=== PATIENT | female | born 1985 | race Caucasian/White ===

== ENCOUNTER 2017-10-13 14:13 | Emergency (ER) | payer MEDICAID, SELFPAY ==
[2017-10-13 14:14] VITALS: BP 133/83; PULSE 94; RESP 16; TEMP 36.3; O2SAT 96; BMI 38.3
[2017-10-13] MEDS: Ketorolac 30 MG/ML Syringe IV (14:43)
[2017-10-13] MEDS: 0.9% Normal Saline 1,000 ML 1000 ML IV (14:43)
[2017-10-13] MEDS: Dicyclomine 20 MG/2 ML Vial IM (14:43)
[2017-10-13] MEDS: Ondansetron 4 MG/2 ML Vial IV (14:43)
[2017-10-13 15:07] LABS: Absolute Lymphocyte Count 2.11 X10^3/ul (0.83-4.51); Absolute Neutrophil Count 7.6 X10^3/uL (2.0-7.7); Basophil# 0.02 X10^3/uL; Basophil% 0.2 % (0-1); Eosinophil# 0.36 X10^3/uL; Eosinophils% 3.4 % (0-5); Hematocrit 45.8 % (37-47); Hemoglobin 15.4 g/dl (12.0-15.0); Lymphocyte # 2.11 X10^3/ul (4.0); Lymphocyte % 19.9 % (19-41); Mean Corp Hgb Conc 33.6 g/gl (32-36); Mean Corpuscular Hgb 31.6 pg (27.0-32.0); Mean Platelet Vol. 8.6 fl (6.2-12.0); Monocyte# 0.52 X10^3/uL; Monocyte% 4.9 % (0-10); Neutrophil # 7.56 X10^3/uL (2.7-7.7); Neutrophil % 71.3 % (47-70); Platelet Count 316 K/mm3 (150-450); RBC Distribution Width SD 44.6 fl (35.1-43.9); Red Blood Count 4.87 M/mm3 (4.2-5.4); White Blood Count 10.6 K/mm3 (4.4-11.0)
[2017-10-13 15:10] LABS: POSITIVE COUNT NO; POSITIVE DIFFERENTIAL NO; POSITIVE MORPHOLOGY NO
--- NOTE | 2017-10-13 15:29 | ED.DCSUM_ITS ---
- ER Visit Summary Date of Service: 10/13/17 Chief Complaint: Abdominal pain History of Present Illness: The patient is a [address] Davidson. She reports that she has abdominal pain that began 2 days ago. Is gradually gotten worse. Is a sharp, stabbing pain that is 10 out of 10 at worst and 7 out of 10 currently. States is worsened by nothing and relieved by pressure. She reports she has been nauseated and vomited approximately 10 times. No blood or emesis. She has had 2 episodes of diarrhea, but has not had any today. No blood in her stools or black tarry stools. No dysuria or frequency. Last menstrual period was October 04. Patient does state that she began feeling ill after eating a pork loin that she cooked at home. Others in the family did not feel well after, but they have all returned to baseline. Patient denies sick contacts. Has not been camping out of the country. Does not drink well water. No recent antibiotic use. Physical Examination: Vitals: Stable. Afebrile. General: Well-nourished and well-developed. Head: Normocephalic atraumatic. Neck: Supple, no lymphadenopathy. No JVD. Nontender. Cardiovascular: Regular rate and rhythm. No murmurs. Respiratory: No respiratory distress. Clear to auscultation bilaterally. Abdominal: Soft, mild diffuse tenderness palpation with moderate epigastric tenderness, nondistended, normal bowel sounds. No guarding, rebound, or peritoneal signs. Back: Nontender. Extremities: Nontender, no edema. Skin: Normal color, no rash. Neurologic: Alert and oriented ?3. Cranial nerves II through XII are intact. Normal strength and sensation. Psych: Normal affect. Test Results: CBC is marked for hemoglobin of 15.4 and 7 neutrophils of 71. BMP is normal. LFTs are normal. Lipase is normal. Emergency Department Course and Treatment: Patient had an IV placed. She was given a liter of normal saline. She is given Toradol and Zofran IV. She is given Bentyl IM. She is resting comfortably. Treatment Plan: Patient will be discharged with Zofran and Bentyl. Instructed to follow-up with Dr. Davidson in 1-2 days if not improving. Return to the emergency department for any worsening symptoms. Disposition: To home in improved and stable condition. Impression: 1. Vomiting/diarrhea. This note was generated with [employer] dictation software. It may contain incorrect words, spelling, and punctuation that were not noted in review of the chart prior to signing ED Disposition - Plan for ED Patient: Chief Complaint: Abd Pain Instructions: ED Gastroenteritis Vs Food Poison Prescriptions: Ondansetron [Zofran Odt] 4 mg PO Q8H PRN PRN #10 tablet PRN Reason: Nausea Dicyclomine HCl [Bentyl] 20 mg PO TIDAC #20 capsule Referrals: Dion Davidson DO [Primary Care Provider] - 1-2 Days if not improving
[2017-10-13 15:48] LABS: AST(SGOT) 15 U/L (15-37); Alanine Aminotransfer ALT/SGPT 25 U/L (13-56); Albumin, Serum 3.8 g/dL (3.2-5.0); Alkaline Phosphatase 94 U/L (45-117); Anion Gap 4 (5-15); BUN 8 mg/dL (7-18); BUN/Creat Ratio 9.4 RATIO (10-20); Bilirubin, Direct 0.12 mg/dL (0.00-0.30); Calcium,Total 8.9 mg/dL (8.5-10.1); Chloride 107 mmol/L (98-107); Creatinine, Serum 0.85 mg/dL (0.55-1.02); EST Glomerular Filtration Rate 83 mL/min (>60); Est Glom Filt Rate - Afr Amer 101 mL/min (>60); Estimated Creatinine Clearance 76.54 ml/min; Globulin 4.2 g/dL (2.2-4.2); Glucose 80 mg/dL (74-106); Lipase 169 U/L (73-393); Potassium 3.9 mmol/L (3.5-5.1); Sodium Level 139 mmol/L (136-145)
[2017-10-13] MEDS: Morphine 4 MG/ML Syringe IV (16:08)
[2017-10-13] MEDS: proMETHazine 25 MG/ML Syringe 6.25 MG IV (16:09)
[2017-10-13 16:10] VITALS: BP 126/85; PULSE 67; RESP 18; O2SAT 100
[2017-10-13 16:22] VITALS: BP 126/85; PULSE 67; RESP 18; O2SAT 100
== END 2017-10-13 16:22 | disposition home or self-care (01) ==
PROVIDERS: Emergency Provider Emergency Medicine; Family Provider Student in an Organized Health Care Education/Training Program; PCP Student in an Organized Health Care Education/Training Program
DX: R11.2 Nausea with vomiting, unspecified (principal); R19.7 Diarrhea, unspecified; R10.9 Unspecified abdominal pain; R53.1 Weakness; F17.210 Nicotine dependence, cigarettes, uncomplicated
CPT/HCPCS: 80048; 80076; 83690; 85025; 99284; J7030; A4216; J2405

== ENCOUNTER 2019-01-20 14:11 | Emergency (ER) | payer MEDICAID, SELFPAY ==
[2019-01-20 14:12] VITALS: BP 149/73; PULSE 89; RESP 16; TEMP 36.6; O2SAT 98; BMI 27.8
--- NOTE | 2019-01-20 14:35 | US_ITS ---
STUDY: FIRST TRIMESTER OBSTETRICAL ULTRASOUND REASON FOR EXAM: Female, 33 years old. Abdominal cramping with excessive nausea and vomiting. LMP: December 05, 2018. TECHNIQUE: Transvaginal TECHNICAL QUALITY: Adequate. PRIOR ULTRASOUND: None. FINDINGS: There is visualization of a single gestational sac in a normal intrauterine position. The mean sac diameter (MSD) measures 2.2 cm, indicating an estimated gestational age (EGA) of 6 weeks, 4 days. The gestational sac shape is within normal limits. There is a visualized yolk sac. The yolk sac measures 3.9 mm. The placenta is non-visualized. There is visualization of a live embryo. The crown-rump length (CRL) measures 6.3 mm, indicating an estimated gestational age (EGA) of 6 weeks, 4 days. No cardiac activity is noted at this time. The estimated gestation age (EGA) by LMP is 6 weeks, 4 days. The estimated date of delivery (NAYLA) by LMP is September 11, 2019. The estimated gestation age (EGA) by US is 6 weeks, 4 days. The estimated date of delivery (NAYLA) by US is September 11, 2019. The uterus measures 7.9 cm x 5.4 cm x 4.2 cm. There is no demonstrated uterine fibroid. The cervix is closed. The right ovary measures 3.2 cm x 1.9 cm x 2.0 cm. There is no right ovarian cyst. There is no visualized right adnexal mass or complex lesion. The left ovary measures 4 cm x 3 cm x 2.5 cm. There is a 1.6 cm x 1.3 cm x 1.1 cm corpus luteum cyst. There is no visualized left adnexal mass or complex lesion. There is no fluid in the cul de sac. US/Transvaginal w/Preg US IMPRESSION: Intrauterine gestation with a mean gestational age of 6 weeks and 4 days. No embryonic cardiac activity is noted at this time. A follow-up examination is recommended. Electronically Signed: Long Landeros, at 15:58 EDT , Service support ,
[2019-01-20] MEDS: proMETHazine 25 MG/ML Syringe 12.5 MG IV (14:49)
[2019-01-20] MEDS: 0.9% Normal Saline 1,000 ML 1000 ML IV (14:49)
[2019-01-20 14:54] LABS: Absolute Lymphocyte Count 2.26 X10^3/uL (0.83-4.51); Absolute Neutrophil Count 6.5 X10^3/uL (2.0-7.7); Basophil# 0.08 X10^3/uL; Basophil% 0.8 % (0-1); Hemoglobin 15.1 g/dL (12.0-15.0); Lymphocyte # 2.26 X10^3/ul (4.0); Lymphocyte % 22.9 % (19-41); Mean Corp Hgb Conc 35.1 g/dL (32-36); Mean Corpuscular Hgb 32.3 pg (27.0-32.0); Mean Corpuscular Volume 92.1 fL (81-99); Mean Platelet Vol. 8.4 fl (6.2-12.0); Monocyte# 0.65 X10^3/uL; Monocyte% 6.6 % (0-10); NRBC Flagged by Analyzer 0 % (0-5); Neutrophil # 6.52 X10^3/uL (2.7-7.7); Platelet Count 337 K/mm3 (150-450); RBC Distribution Width SD 40.4 fl (35.1-43.9); Red Blood Count 4.67 M/mm3 (4.2-5.4); White Blood Count 9.9 K/mm3 (4.4-11.0)
[2019-01-20 15:01] LABS: AST(SGOT) 12 U/L (15-37); Alanine Aminotransfer ALT/SGPT 20 U/L (13-56); Albumin, Serum 3.8 g/dL (3.2-5.0); Alkaline Phosphatase 85 U/L (45-117); Anion Gap 10 (5-15); BUN 9 mg/dL (7-18); BUN/Creat Ratio 14.3 RATIO (10-20); Calcium,Total 9.5 mg/dL (8.5-10.1); Chloride 107 mmol/L (98-107); Creatinine, Serum 0.63 mg/dL (0.55-1.02); EST Glomerular Filtration Rate 116 mL/min (>60); Est Glom Filt Rate - Afr Amer 141 mL/min (>60); Estimated Creatinine Clearance 101.39 ml/min; Globulin 3.9 g/dL (2.2-4.2); Glucose 104 mg/dL (74-106); Potassium 3.9 mmol/L (3.5-5.1); Protein, Total 7.7 g/dL (6.4-8.2); Sodium Level 141 mmol/L (136-145)
[2019-01-20 15:44] LABS: hCG Titer Quant., Serum 40168 mIU/mL (1-3)
[2019-01-20 15:55] VITALS: BP 120/76; PULSE 79; RESP 16; O2SAT 99
[2019-01-20 16:02] LABS: Mucous, Urine 0 SEEN /hpf (<or=2+); Red Blood Cells-Urine 0 SEEN /hpf (0-5); White Blood Cells 0 SEEN /hpf (0-5)
[2019-01-20 16:29] LABS: Color, Urine Yellow (Yellow); Glucose, Dipstick Normal (Normal); Ketone-Dipstick Negative (Negative); Leukocyte Esterase-Dipstick Negative /ul (Negative); Nitrite-Dipstick Negative (Negative); Occult Blood-Urine Negative /ul (Negative); Protein-Dipstick Negative (Negative); Urine Bilirubin Dipstick Negative (Negative); Urine Clarity Sl. Cloudy (Clear); Urine Urobilinogen Normal (Normal)
[2019-01-20 16:30] LABS: Amorphous Sediment 2+; Bacteria 1+ /hpf (None Seen); Squamous Epithelial Cells - UA 0-5 SEEN /hpf (5-10)
--- NOTE | 2019-01-20 19:03 | ED.VISSUMM ---
- ER Visit Summary Date of Service: 01/20/19 Chief Complaint: Nausea and vomiting History of Present Illness: The patient is a 33 F with nausea and vomiting for 2 weeks, worse for 4 days. Patient is Ab2 at 6 weeks and follows with [facility]. She has not been seen so far for this . She also reports a headache today and lower abdominal cramps. Denies any other associated symptoms. Physical Examination: BP 149/73. Otherwise vitals normal. CN grossly intact. No weakness or numbness noted. HEENT exam normal. Heart regular. Lungs clear. Abdomen soft. Skin normal. Test Results: Hb 15.1. AST 12. Otherwise CBC and CMP normal. UA shows 1+ bacteria, otherwise normal. Culture pending. HCG 40k. US shows IUP at 6 weeks with ovarian cyst. No FHR at this time. Emergency Department Course and Treatment: Treated with IV fluids and phenergan while awaiting results. On reevaluation, symptoms have improved. BP 120/68. Patient discussed with Alisson Vincent and advised to call for follow up in 1-2 days. Advised that the biggest concern without a FHR at this point would be miscarriage. Will check for FHR, BP monitoring and urine CX. Return for any issues. Treatment Plan: As above Disposition: Discharge Impression: 1. Threatened 2. Nausea and vomiting This note was generated with [employer] dictation software. It may contain incorrect words, spelling, and punctuation that were not noted in review of the chart prior to signing ED Disposition - Plan for ED Patient: Disposition: Home or Assisted Living Referrals: Dion Davidson DO [Primary Care Provider] -
== END 2019-01-20 17:07 | disposition home or self-care (01) ==
PROVIDERS: Emergency Provider Emergency Medicine; Family Provider Student in an Organized Health Care Education/Training Program; PCP Student in an Organized Health Care Education/Training Program
DX: O20.0 Threatened abortion (principal); R11.2 Nausea with vomiting, unspecified; Z3A.01 Less than 8 weeks gestation of pregnancy; Z72.0 Tobacco use
CPT/HCPCS: 76817; 80053; 81001; 84702; 85025; 86900; 87086; 87088; 96361; 96374; 99283; J7030; A4216

== ENCOUNTER 2019-02-22 14:21 | Emergency (ER) | payer MEDICAID, SELFPAY ==
[2019-02-22 14:22] VITALS: BP 132/70; PULSE 86; RESP 16; TEMP 36.6; O2SAT 99; BMI 34.2
--- NOTE | 2019-02-22 14:34 | ED.DCSUM_ITS ---
History of Present Illness Chief Complaint: Nausea/Vomiting Informant: Patient, Significant Other - Abdominal Pain/Flank Pain Onset: Today Context: Gradual Onset Timing: Continuous Quality: Burning Location: Epigastric Current Severity: Mild Maximum Severity: Mild Worsened by: Food Relieved by: Remaining Still - Nausea/Vomiting/Emesis GI Symptom: Nausea, Vomiting Onset: Yesterday Quality: Nonbilious Severity: Severe Episodes: 5 Associated Symptoms: Frequency. Negative for: Dysuria, Hematuria LMP: Narrative: 33-year-old female approximately 11 weeks G4, P1 Ab2 presents to the emergency department with nausea and vomiting. Patient has been having nausea vomiting since yesterday. She is having difficulty keeping down food and fluids. She has been dealing with this now for the last several weeks and was here a few weeks ago for similar symptoms. She states that she has not been taking any antiemetics at home. She has not had any hematemesis or coffee- ground emesis. She has no diarrhea melena or hematochezia. She is not having any vaginal bleeding or discharge. She has some mild epigastric abdominal pain. She denies any dysuria or hematuria. Her family has been sick at home with similar symptoms. Prior similar symptoms: Yes Recent Illness/Hospitalization: No Past Medical History - Allergies and Home Meds Allergies/Adverse Reactions: Allergies varenicline [From Chantix] Allergy (Verified 02/22/19 14:22) Other Primary Care Physician: Dion Davidson DO [Primary Care Provider] - Evangelina Medina MD [STAFF PHYSICIAN] - 3-5 Days Prior records reviewed: Yes Past Medical History: - - [id number] Surgical History: noncontributory Lives: With Family Smoking Status: Current every day smoker Review of Systems All systems negative except as indicated Gastrointestinal: Reports: Nausea, Vomiting Genitourinary: Reports: Frequency Physical Exam Vital Signs/Narrative: Vital Signs Temp Pulse Resp BP Pulse Ox 02/22/19 14:22 97.8 F 86 16 132/70 H 99 Inital Vital Signs reviewed: Yes General: Well nourished, Well developed Head: Normocephalic, Atraumatic Eyes: Perrl, EOMI ENT: Moist mucous membranes Neck: Supple, Nontender Cardiovascular: Regular rate, Regular rhythm, No murmurs Respiratory: No distress, CTA bilaterally, Chest nontender Abdomen: Soft, Nontender, Nondistended, Normal bowel sounds, No masses Back: Nontender, Normal Inspection Extremities: Nontender, No edema Skin: Normal color, No rash Neurological: Alert, Oriented x3 Psychological: Normal affect Diagnostic/Tx/Re-eval - Medical Decision Making Patient was given IV fluids, IV Phenergan. Basic labs were obtained and were unremarkable. Urinalysis is contaminated with 5-10 white blood cells a urine culture was sent. Repeat evaluation patient feels improved. She is tolerating by mouth. Patient has Zofran at home requests a prescription for more Phenergan. This will be provided. She was advised to follow-up with her LEGAL MANAGER. She was agreeable with plan and all questions were answered she was discharged home with return precau tions. ED Disposition - Plan for ED Patient: Disposition: Home or Assisted Living Instructions: Hyperemesis Gravidarum (Severe Morning Sickness), VOMITING (6y- Adult) Prescriptions: proMETHazine tablet [Phenergan] 25 mg PO Q6H PRN PRN #10 tab PRN Reason: Nausea Prescription Printed Referrals: Dion Davidson DO [Primary Care Provider] - Evangelina Medina MD [STAFF PHYSICIAN] - 3-5 Days
[2019-02-22] MEDS: proMETHazine 25 MG/ML Syringe 12.5 MG IV (14:59)
[2019-02-22] MEDS: 0.9% Normal Saline 1,000 ML 1000 ML IV (15:03)
[2019-02-22 15:04] LABS: Absolute Lymphocyte Count 2.15 X10^3/uL (0.83-4.51); Absolute Neutrophil Count 8.4 X10^3/uL (2.0-7.7); Basophil# 0.06 X10^3/uL; Basophil% 0.5 % (0-1); Eosinophil# 0.36 X10^3/uL; Eosinophils% 3.1 % (0-5); Hematocrit 37.1 % (37-47); Hemoglobin 12.9 g/dL (12.0-15.0); Lymphocyte # 2.15 X10^3/ul (4.0); Lymphocyte % 18.3 % (19-41); Mean Corp Hgb Conc 34.8 g/dL (32-36); Mean Corpuscular Hgb 32.7 pg (27.0-32.0); Mean Corpuscular Volume 93.9 fL (81-99); Mean Platelet Vol. 8.5 fl (6.2-12.0); Monocyte# 0.64 X10^3/uL; Monocyte% 5.4 % (0-10); NRBC Flagged by Analyzer 0 % (0-5); Neutrophil # 8.42 X10^3/uL (2.7-7.7); Neutrophil % 71.7 % (47-70); Platelet Count 325 K/mm3 (150-450); RBC Distribution Width CV 12.4 % (11.6-14.6); RBC Distribution Width SD 43.2 fl (35.1-43.9); Red Blood Count 3.95 M/mm3 (4.2-5.4); White Blood Count 11.8 K/mm3 (4.4-11.0)
[2019-02-22 15:24] LABS: Mucous, Urine 0 SEEN /hpf (<or=2+); Red Blood Cells-Urine 0 SEEN /hpf (0-5)
[2019-02-22 15:29] LABS: Color, Urine Yellow (Yellow); Glucose, Dipstick Normal (Normal); Ketone-Dipstick Negative (Negative); Leukocyte Esterase-Dipstick 100 /ul (Negative); Nitrite-Dipstick Negative (Negative); Occult Blood-Urine 10 /ul (Negative); Protein-Dipstick 15 mg/dl (Negative); Urine Bilirubin Dipstick Negative (Negative); Urine Clarity Sl. Cloudy (Clear); Urine Urobilinogen Normal (Normal)
[2019-02-22 15:40] LABS: Amorphous Sediment 1+; Bacteria 2+ /hpf (None Seen); Squamous Epithelial Cells - UA 5-10 SEEN /hpf (5-10); White Blood Cells 5-10 SEEN /hpf (0-5)
[2019-02-22 15:52] LABS: Anion Gap 7 (5-15); BUN 12 mg/dL (7-18); BUN/Creat Ratio 22.6 RATIO (10-20); Calcium,Total 8.7 mg/dL (8.5-10.1); Chloride 109 mmol/L (98-107); Creatinine, Serum 0.53 mg/dL (0.55-1.02); EST Glomerular Filtration Rate 142 mL/min (>60); Est Glom Filt Rate - Afr Amer 172 mL/min (>60); Estimated Creatinine Clearance 120.52 ml/min; Glucose 94 mg/dL (74-106); Potassium 3.3 mmol/L (3.5-5.1); Sodium Level 141 mmol/L (136-145)
--- NOTE | 2019-02-22 15:59 | ED.DEP ---
ED Disposition - Plan for ED Patient: Instructions: VOMITING (6y-Adult), Hyperemesis Gravidarum (Severe Morning Sickness) Referrals: Dion Davidson DO [Primary Care Provider] - Evangelina Medina MD [STAFF PHYSICIAN] - 3-5 Days
--- NOTE | 2019-02-22 16:00 | ED.VISSUMM ---
- ER Visit Summary Date of Service: 02/22/19 Chief Complaint: [Vomiting History of Present Illness: The patient is a 33 F [presents to the emergency department with vomiting since yesterday. Patient states she cannot keep anything down. She denies any fever or diarrhea. She denies urinary symptoms. Patient is about 12 weeks . She had an ultrasound last week and everything looked normal. Patient states that she has had a little bit of vaginal bleeding however she had a biopsy of her cervix this week therefore is not unexpected. She denies any abdominal pain. Patient is . Patient has had a slight cough. She denies any fevers at home.] Patient states that she has Phenergan at home as well as Zofran but she does not like to take the Phenergan because her makes her sleepy and she has children take care of. Physical Examination: [HEENT-PERRLA, EOMI. Cranial nerves II through XII grossly intact. TMs clear. Mucous membranes moist. No adenopathy. Cardiovascular-regular rate and rhythm without murmur or ectopy Lungs-clear to auscultation, chest wall stable without crepitus or subcu emphysema Abdomen-normoactive bowel sounds, soft, nontender, no rebound or rigidity, no peritoneal signs. Extremities-intact ?4, normal range of motion, normal pulses, atraumatic] Test Results: [CBC with differential showed a slightly elevated white count of 11.8. Chemistries unremarkable other than a slightly depressed potassium of 3.3. Urinalysis showed 100 leukocyte esterase and 5-10 WBCs however she also had 5-10 skin cells and positive bacteria. Urine culture was sent.] Emergency Department Course and Treatment: [She was given a liter normal same fluid bolus and was treated with Phenergan IV.] Treatment Plan: [Patient was able to tolerate a p.o. challenge.] Disposition: [Discharged home in stable condition] Impression: [Vomiting-hyperemesis gravidarum] This note was generated with [employer] dictation software. It may contain incorrect words, spelling, and punctuation that were not noted in review of the chart prior to signing ED Disposition - Plan for ED Patient: Instructions: Hyperemesis Gravidarum (Severe Morning Sickness), VOMITING (6y-Adult) Referrals: Dion Davidson DO [Primary Care Provider] - Evangelina Medina MD [STAFF PHYSICIAN] - 3-5 Days
== END 2019-02-22 16:50 | disposition home or self-care (01) ==
PROVIDERS: Emergency Provider Physician Assistant Medical; Family Provider Student in an Organized Health Care Education/Training Program; PCP Student in an Organized Health Care Education/Training Program
DX: O21.0 Mild hyperemesis gravidarum (principal); O99.331 Smoking (tobacco) complicating pregnancy, first trimester; F17.200 Nicotine dependence, unspecified, uncomplicated; Z3A.12 12 weeks gestation of pregnancy
CPT/HCPCS: 80048; 81001; 85025; 87086; 87088; 96361; 96374; 99285; A4216

== ENCOUNTER 2019-05-20 11:35 | Outpatient (CLI) | payer MEDICAID, SELFPAY ==
[2019-05-20 12:01] VITALS: BMI 39.9
--- NOTE | 2019-05-23 07:57 | OB.TRI.NOTE ---
- Problem List (1) Abdominal pain affecting Status: Acute (2) 23 weeks gestation of Status: Acute History of Present Illness Date of Service: 05/20/19 Was patient seen by the physician?: No Reason For Visit: CARISA Final NAYLA: 09/11/19 Gestational age: 24 Weeks and 1 Days History of Present Illness: Patient is a 33-year-old G3, P1 female at 23 weeks and 5 days gestation who presented to the office to see Alisson Vincent for routine obstetric visit. At that time she was noted to have abdominal pain. No vaginal bleeding, loss of fluid. Positive movement. Alisson Vincent found her cervix to be closed in the office. Cervical length was found to be 4 cm. She was sent over to labor and delivery for monitoring and a cervical recheck. Allergies varenicline [From Chantix] Allergy (Verified 05/20/19 12:03) Other made me crazy NST - FHR Rate Baby A Baseline: 145 Variability:: Moderate Accelerations:: None Decelerations:: None NST Reactive:: Appropriate for gestational age Uterine Activity:: quiet Impression/Plan Cervix remained closed Pain likely secondary to round ligament pain, as well as h/o abdominoplasty prior to D/c home w/ f/u in office
== END 2019-05-20 12:55 | disposition home or self-care (01) ==
LOC: WPOUT 11:43 → WP 11:43
PROVIDERS: Family Provider Student in an Organized Health Care Education/Training Program; PCP Student in an Organized Health Care Education/Training Program; Referring Provider Obstetrics & Gynecology; Visit Provider Obstetrics & Gynecology
DX: O26.892 Other specified pregnancy related conditions, second trimester (principal); R10.9 Unspecified abdominal pain; Z3A.24 24 weeks gestation of pregnancy
CPT/HCPCS: 59025; 59050; 99218; G0378

== ENCOUNTER 2019-06-27 13:57 | Emergency (ER) | payer MEDICAID, SELFPAY ==
[2019-06-02 10:12] VITALS: BMI 39.9
[2019-06-27 13:57] VITALS: BP 148/90; PULSE 104; RESP 20; TEMP 36.6; O2SAT 98; BMI 40.2
[2019-06-27 14:00] VITALS: BP 148/90; PULSE 104; RESP 20; TEMP 36.6; O2SAT 98
--- NOTE | 2019-06-27 14:14 | ED.DCSUM_ITS ---
History of Present Illness Chief Complaint: Dental Informant: Patient Onset: Weeks Context: Gradual Onset Current Severity: Moderate Maximum Severity: Moderate Narrative: Patient presents with left-sided dental pain. She states she has had problems with 1 of the teeth on her left mandible for quite some time. She was seen by her dentist but they were not able to get her jaw numbed up and had to delay her procedure. Over the last 24 hours her pain has become more severe. She has pain that radiates down under her jaw and up to her left ear. Patient is currently 7 months . She has been taking Tylenol without improvement. She states she is called multiple dentists and they will tell her just to take Tylenol. Past Medical History - Allergies and Home Meds Allergies/Adverse Reactions: Allergies varenicline [From Chantix] Allergy (Verified 06/27/19 14:00) Other made me crazy Primary Care Physician: Dion Davidson DO [Primary Care Provider] - Past Medical History: - - Currently 7 months Surgical History: noncontributory Lives: With Family Smoking Status: Current every day smoker Review of Systems General: Denies: Chills, Fever Eyes: Denies: Visual changes - bilaterally ENT: Reports: Left ear pain, - - Left-sided dental pain Cardiovascular: Denies: Chest pain Respiratory: Denies: Dyspnea Gastrointestinal: Denies: Abdominal pain, Nausea, Vomiting, Diarrhea Neurological: Denies: Headache Physical Exam Vital Signs/Narrative: Vital Signs Temp Pulse Resp BP Pulse Ox 06/27/19 14:00 98 F 104 H 20 H 148/90 H 98 06/27/19 13:57 98 F 104 H 20 H 148/90 H 98 Inital Vital Signs reviewed: Yes General: Well nourished, Well developed Head: Normocephalic ENT: Moist mucous membranes, - - Reproducible tenderness along the left mandible. No submandibular fullness or sign of Dickson's. Left mandibular first and second molars have fillings in place. There is mild surrounding gum edema. Posterior pharynx exam is normal. Neck: Supple Cardiovascular: Regular rate, Regular rhythm Respiratory: No distress, CTA bilaterally Abdomen: Soft, Nontender - Gravid Extremities: Nontender Skin: Normal color Neurological: Alert, Oriented x3 Psychological: - - Anxious Diagnostic/Tx/Re-eval - Medical Decision Making She has been taking Tylenol regularly. Her last dose was 3 hours ago. She will be given a dose of oxycodone here as well as a dose of Pen-Vee K. She be given prescriptions for the same. ED Disposition - Plan for ED Patient: Disposition: Home or Assisted Living Diagnosis: Odontalgia Instructions: Dental Pain Prescriptions: Oxycodone [Oxyir] 5 mg PO Q6H PRN PRN 3 Days #10 tablet PRN Reason: Pain Score 6-10/10 Transmission Status: Sent to [facility]/pharmacy #[id number] Penicillin V Potassium 500 mg PO 4X/DAY #40 tab Transmission Status: Pending to [facility]/pharmacy #[id number] Referrals: Dion Davidson DO [Primary Care Provider] - Additional Instructions: Dental list provided
[2019-06-27] MEDS: oxyCODONE 5 MG Tablet PO (14:21)
[2019-06-27] MEDS: Penicillin Vk 250 MG Tablet 500 MG PO (14:22)
== END 2019-06-27 14:35 | disposition home or self-care (01) ==
PROVIDERS: Emergency Provider Emergency Medicine; Family Provider Student in an Organized Health Care Education/Training Program; PCP Student in an Organized Health Care Education/Training Program
DX: O26.892 Other specified pregnancy related conditions, second trimester (principal); K08.89 Other specified disorders of teeth and supporting structures; O99.332 Smoking (tobacco) complicating pregnancy, second trimester; F17.200 Nicotine dependence, unspecified, uncomplicated; Z3A.00 Weeks of gestation of pregnancy not specified
CPT/HCPCS: 99283

== ENCOUNTER 2019-07-17 10:23 | Outpatient (CLI) | payer MEDICAID, SELFPAY ==
[2019-07-17 11:12] LABS: Hematocrit 37.3 % (37-47); Hemoglobin 13.1 g/dL (12.0-15.0); Mean Corp Hgb Conc 35.1 g/dL (32-36); Mean Corpuscular Hgb 32.7 pg (27.0-32.0); Platelet Count 320 K/mm3 (150-450); RBC Distribution Width SD 44.2 fl (35.1-43.9); Red Blood Count 4.01 M/mm3 (4.2-5.4)
[2019-07-17 12:08] LABS: International Normalized Ratio 1.1; Partial Thromboplast Time 28.1 Seconds (24.1-36.2)
[2019-07-17 12:09] LABS: Fibrinogen 546 mg/dl (203-444)
--- NOTE | 2019-07-17 12:35 | OB.TRI.NOTE ---
History of Present Illness Date of Service: 07/17/19 Was patient seen by the physician?: Yes Reason For Visit: FALL Date of Service: 07/17/19 Final NAYLA: 09/11/19 Final NAYLA Source: US <20 weeks Gestational age: 32 Weeks and 0 Days Allergies varenicline [From Chantix] Allergy (Verified 06/27/19 14:00) Other made me crazy - Pertinent Past Medical History Medical History: Past Medical History (Last Reviewed 06/02/19 @ 10:16 by Amrit Edwards) SOB (shortness of breath) Laboratory Studies: Laboratory Tests 07/17/19 07/17/19 Range/Units 11:00 11:00 WBC 15.0 H (4.4-11.0) K/mm3 RBC 4.01 L (4.2-5.4) M/mm3 Hgb 13.1 (12.0-15.0) g/dL Hct 37.3 (37-47) % MCV 93.0 (81-99) fL MCH 32.7 H (27.0-32.0) pg MCHC 35.1 (32-36) g/dL RDW Std Deviation 44.2 H (35.1-43.9) fl RDW Coeff of Kalani 13.0 (11.6-14.6) % Plt Count 320 (150-450) K/mm3 MPV 9.0 (6.2-12.0) fl PT 14.0 (11.7-14.9) SECONDS INR 1.1 APTT 28.1 (24.1-36.2) Seconds Fibrinogen 546 H (203-444) mg/dl Physical Exam General: Alert, Oriented x3 Abdomen: Soft, Gravid, - - mild tendernes diffusely- no rebound, no guarding. Non acute abdomen Neurological: Cranial nerves II-XII grossly intact NST - FHR Rate Baby A Baseline: 120 Variability:: Moderate Accelerations:: 15 x 15 Decelerations:: None NST Reactive:: Yes, Appropriate for gestational age FHR Category:: Category I Uterine Activity:: no contractions Impression/Plan 33yo @ 32 wks s/p fall down 9 steps- hit back no abdominal trauma 1) 4hrs monitoring- if reactive NST and no regular ctx will dc home 2) CBC, COAGS, Fibrinogen, KB test ordered- Rh negative (rhogam given 28 wks)
[2019-07-17 14:47] VITALS: BMI 42.6
[2019-07-18 02:19] LABS: Kleihauer-Betke Negative
== END 2019-07-17 15:00 | disposition home or self-care (01) ==
LOC: WPOUT 10:35 → WP 10:35
PROVIDERS: PCP Student in an Organized Health Care Education/Training Program; Referring Provider Obstetrics & Gynecology; Visit Provider Obstetrics & Gynecology
DX: O26.893 Other specified pregnancy related conditions, third trimester (principal); T79.9XXA Unspecified early complication of trauma, initial encounter; W10.9XXA Fall (on) (from) unspecified stairs and steps, initial encounter; Z3A.32 32 weeks gestation of pregnancy
CPT/HCPCS: 36415; 59050; 85027; 85384; 85460; 85610; 85730; 99218; G0378

== ENCOUNTER 2019-08-25 04:40 | Inpatient (IN) | payer MEDICAID, SELFPAY ==
[2019-08-24] VITALS (8 sets, daily range): BP systolic 125–146; BP diastolic 62–88; PULSE 84–93; TEMP 97.9–98.6; O2SAT 98; BMI 44.6
[2019-08-24 17:09] LABS: Hematocrit 36.1 % (37-47); Hemoglobin 12.3 g/dL (12.0-15.0); Mean Corp Hgb Conc 34.1 g/dL (32-36); Mean Corpuscular Hgb 31.6 pg (27.0-32.0); Mean Corpuscular Volume 92.8 fL (81-99); Mean Platelet Vol. 8.9 fl (6.2-12.0); Platelet Count 387 K/mm3 (150-450); RBC Distribution Width CV 13.2 % (11.6-14.6); RBC Distribution Width SD 44.7 fl (35.1-43.9); Red Blood Count 3.89 M/mm3 (4.2-5.4); White Blood Count 13.1 K/mm3 (4.4-11.0)
[2019-08-24 17:16] LABS: Prothrombin Time (Protime)PT. 13.1 SECONDS (11.7-14.9)
[2019-08-24 17:18] LABS: Partial Thromboplast Time 27.4 Seconds (24.1-36.2)
[2019-08-24 17:24] LABS: Protein, Urine (Random) 39.6 mg/dL (<11.9); Protein:Creat Ratio 623 mg/g CRE (0-200)
[2019-08-24 17:29] LABS: AST(SGOT) 12 U/L (15-37); Alanine Aminotransfer ALT/SGPT 13 U/L (13-56); Creatinine, Serum 0.47 mg/dL (0.55-1.02); EST Glomerular Filtration Rate 164 mL/min (>60); Est Glom Filt Rate - Afr Amer 198 mL/min (>60); Estimated Creatinine Clearance 135.91 ml/min; Uric Acid 2.5 mg/dL (2.6-6.0)
--- NOTE | 2019-08-24 22:44 | PCM.HP.OB ---
History Date of Admission: 08/24/19 Final NAYLA: 09/11/19 Final NAYLA Source: US <20 weeks Gestational age: 37 Weeks and 3 Days History of this : This is a 33 year-old, @ 37+ weeks gestation present with complaints of not feeling well- denies NIETO, visual changes. Pt reports good FM. No vaginal bleeding, no RUQ pain. Pt has h/o GHTN currently taking ASA. Medical History: Medical History (Last Reviewed 06/02/19 @ 10:16 by Amrit Edwards) SOB (shortness of breath) R06.02 Allergies varenicline [From Chantix] Allergy (Verified 06/27/19 14:00) Other made me crazy Home Medications: Home Medications Aspirin [Aspirin EC] 81 mg PO DAILY 02/22/19 Vits [Prenatabs FA] 1 tab PO DAILY 02/22/19 Smoking Status: Current every day smoker Alcohol: None Number of Fetus(es): 1 History Past Pregnancies: Past Pregnancies Delivery Date Name GA/ Weeks Outcome Route Wt Sex Labor Length Anesthesia Delivery Location Provider FOB Expected Infant Delivery Method: Repeat Section Review of Systems Eyes: Denies: Blurred vision, Vision Change HEENT: Denies: Difficulty Hearing, Head Aches Cardiovascular: Denies: Chest Pain Gastrointestinal: Denies: Abdominal Pain Psychiatric: Reports: Anxiety Physical Exam General: Alert, Oriented x3 Abdomen: Non Tender, Gravid Neurological: Cranial nerves II-XII grossly intact Assessment/Plan All Active Problems (Last Reviewed 06/02/19 @ 10:16 by Amrit Edwards) Abdominal pain affecting (Acute) 23 weeks gestation of (Acute) This is a 33 year-old, @ 37+ weeks with Preeclampsia - w/o severe features, H/o GHTN 1) admit to L&D 2) repeat cs and Bilateral salpingectomy in morning with RR 3) Intermittent FHR 4) Monitor VS 5) PRE E labs reviewed- Elevated Urine Prot/creat ratio 6) Vistaril ordered for anxiety tonight.
[2019-08-24] MEDS: Mag Hydrox/Al Hydrox/Simeth 30 ML UDC PO (23:25)
[2019-08-24] MEDS: hydrOXYzine PAM 25 MG Capsule 50 MG PO (23:25)
[2019-08-25] VITALS (26 sets, daily range): BP systolic 117–150; BP diastolic 52–82; PULSE 61–90; RESP 16; TEMP 35.8–36.9; O2SAT 95–100
[2019-08-25] MEDS: 0.9 % NaCl (Sterile) Posiflush 10 mL IV (05:19)
[2019-08-25] MEDS: Lactated Ringers 1,000 ML 999 ML IV (06:00)
[2019-08-25] MEDS: hydrOXYzine PAM 25 MG Capsule 50 MG PO (07:51)
[2019-08-25] MEDS: Sodium Citrate/Citric Acid 30 ML UDC PO (11:50)
[2019-08-25] MEDS: Lactated Ringers 1,000 ML 200 ML IV (11:50)
[2019-08-25] MEDS: Cefazolin 2 GM in 0.9% Normal Saline 100 ML IV (12:07)
--- NOTE | 2019-08-25 13:00 | FALS_PTH ---
PATIENT: DYLAN GREGORY LOC: [facility] U#:[id number] AGE/SX: 33/F ROOM: WP007 RE08/25/[address]: Dr. Evangelina Medina MD : 1985 BED: 1 DIS: 08/28/2019 SPEC #: [id number] RECD: 08/25/19 14:14 STATUS: ADRIANA GUANACO #: [id number] JUDITH: 08/25/19 13:[address]: Evangelina Medina DEPT: SURGICAL PATHOLOGY RECD BY: Mason Doshi ENTERED: 08/25/19 14:16 SP TYPE: FALL TUBES OTHR DR: Dr. Dion Davidson, DO Tissues: Fallopian tube Procedures: Surgery Specimen Level II HEADER OPERATION: Tubal ligation PRE-OP DIAGNOSIS: Sterilization TISSUE SUBMITTED: Fallopian tubes, suture in right MICROSCOPIC DIAGNOSIS Bilateral fallopian tubes, tubal ligation: Bilateral fallopian tubes including fimbrial ends, no pathologic diagnosis. SJ:lexi 08/26/19 MICROSCOPIC DESCRIPTION Slides are reviewed. GROSS DESCRIPTION Received is one container labeled with the patient's name and designated bilateral fallopian tubes. The specimen consists of bilateral fallopian tubes including fimbrial ends. The right fallopian tube is identified by a suture. The right fallopian tube measures 6.5 cm in length and up to 1 cm in diameter. The left fallopian tube measures 8 cm in length and 0.6 cm in diameter. Sections do not reveal any mass lesion. Sections reveal unremarkable cut surfaces. Instrument Lens Grinder sections are submitted in two cassettes as follows: 1 - right fallopian tube, 2 - left fallopian tube. / SJ:lexi 08/25/19 TC:4 CPT: 24889 x2
--- NOTE | 2019-08-25 13:12 | OP.PCM_ITS ---
Report of Operation Date of Procedure: 08/25/19 Delivery Classification: Scheduled Final NAYLA: 09/11/19 Final NAYLA Source: US <20 weeks Gestational age: 37 Weeks and 4 Days gym supervisor: Wilfrid Edmonds Type of Anesthesia:: Spinal Special Medications: none Implants Used: none Date of Procedure: 08/25/19 Pre-Operative Diagnosis: 37-week intrauterine , previous section desires repeat, preeclampsia without severe features, maternal obesity with BMI of 44, sterilization request Post-Operative Diagnosis: Same Indications for : Repeat Elective , Desires elective sterilization Description of Procedure: The patient was taken to the operating room. She was prepped and draped in the dorsal supine position with a leftward tilt. A Pfannenstiel skin incision was made approximately 2 cm above the symphysis pubis and carried through to underlying layer fascia with the scalpel. The fascia was incised incised in the midline and extended laterally with the Bear scissors. The fascia was dissected off the rectus muscles with blunt and sharp dissection. The rectus muscles were in the midline and the peritoneum was entered bluntly. The peritoneal incision was stretched and the bladder blade was placed. The uterine incision was made in a low transverse fashion with the scalpel and extended superiorly and inferiorly with blunt dissection. The amniotic membranes were ruptured bluntly and clear amniotic fluid returned. The infant's head was brought to the incision in the flexed position and delivered without difficulty. The remainder of the was delivered with gentle traction and fundal pressure in the standard fashion. The mouth and nares were bulb suctioned. The cord was clamped and cut as the was stimulated. Cord clamping was delayed. The infant was handed off to the waiting nursing staff. The placenta was delivered with fundal massage and gentle traction in the standard fashion. The uterus was exteriorized and cleared of all clots and debris. The cervix was dilated with a ring forcep. The uterine incision was closed with #1 Vicryl in a running locked fashion. The incision was examined and was found to be hemostatic. The LigaSure device was used to clamp, seal and transect the left fallopian tube from the antimesenteric portion of the broad ligament from the cornual insertion to the fimbriated end. The tube was remote removed in its entirety and the site was hemostatic. The same procedure was performed on the contralateral side. The uterus was placed back into the peritoneal cavity and hemostasis was again confirmed. The rectus muscles were examined and any bleeding was Bovie cauterized. The parietal peritoneum and rectus muscles were closed en bloc with an 0 Vicryl running suture. The surgical teams outer gloves were then changed. The rectus fascia was examined and any bleeding was Bovie cauterized and the rectus fascia was closed with 0 PDS suture in a running standard fashion. The subcutaneous tissue was examining and any bleeding was Bovie cauterized. The subcutaneous tissue was reapproximated with 3-0 Vicryl suture. The skin was closed in a subcuticular fashion by the [employer] with me present in the labor and delivery suite. I performed the remainder of the procedure with assistance. All sponge, lap, and needle counts were correct. The patient was taken to her room for recovery in a stable condition. Amniotic Membrane Rupture Type: Artificial Amniotic Fluid Description: Clear Placenta Disposition: [facility] Specimen(s) sent to pathology: Bilateral fallopian tubes Drain: Whitlock to straight drain Fluids Replaced: 1000 Cord Entanglement: None Gender: Female - Susan, 7lb 7 oz (1 minute): 8 (5 minute): 9 Delayed cord clamping: Yes Antibiotic Given: Ancef 2 grams IV x1 - Admit VTE Documentation VTE Present on Admission: No VTE Mechan Device Prophylaxis: SCD's VTE Pharm Prophylaxis ordered?: Yes
[2019-08-25] MEDS: Oxytocin 30 units/NS 500 ml 30 UNITS/500 ML IV.SOLN 167 UNITS IV (13:40)
[2019-08-25] MEDS: Methylergonovine 0.2 MG/ML Ampul IM (14:05)
[2019-08-25] MEDS: miSOPROStol 200 MCG Tablet 1000 MCG RECTAL (14:10)
[2019-08-25 14:11] LABS: Pathology Specimen OB SEE PATHOLOGY REPORT
[2019-08-25] MEDS: DiphenhydrAMINE 25 MG Capsule PO (14:58)
[2019-08-25 16:26] LABS: Hematocrit 38.7 % (37-47); Mean Corp Hgb Conc 33.6 g/dL (32-36); Mean Corpuscular Hgb 31.5 pg (27.0-32.0); Mean Corpuscular Volume 93.7 fL (81-99); Mean Platelet Vol. 8.9 fl (6.2-12.0); Platelet Count 358 K/mm3 (150-450); RBC Distribution Width CV 13.4 % (11.6-14.6); RBC Distribution Width SD 45.4 fl (35.1-43.9); Red Blood Count 4.13 M/mm3 (4.2-5.4); White Blood Count 18.7 K/mm3 (4.4-11.0)
[2019-08-25] MEDS: Ondansetron 4 MG/2 ML Vial IV (17:25)
[2019-08-25] MEDS: Lactated Ringers 1,000 ML 100 ML IV (18:30)
--- NOTE | 2019-08-25 18:44 | PCM.PN.BLA ---
Progress Note Late entry. Was called for increased bleeding around 1400. Clot was cleared from the vagina and there was steady bleeding noted with fundal pressure. Fundus was firm and lower uterine segment was slightly boggy. Nurses had already given 1 dose of Methergine. Rectal cytotec placed and CBC drawn. EBL ~200 cc. STROKE Vital Signs/Narrative: Vital Signs Temp Pulse Resp BP Pulse Ox 08/25/19 17:49 96.5 F L 78 16 08/25/19 16:55 98.5 F 67 16 136/57 H 98 08/25/19 15:24 98.3 F 83 16 117/56 L 100 08/25/19 15:09 97.8 F 69 16 132/52 H 99 08/25/19 14:54 97.8 F 74 16 132/52 H 99
[2019-08-25] MEDS: 0.9% Saline Lock 10 ML Syringe IV (20:04)
[2019-08-25] MEDS: Ketorolac 30 MG/ML Syringe IV (20:04)
[2019-08-25] MEDS: Enoxaparin 40 MG/0.4 ML Syringe SC (21:21)
[2019-08-26] VITALS (13 sets, daily range): BP systolic 99–154; BP diastolic 49–89; PULSE 75–97; RESP 16–20; TEMP 36.4–37.2; O2SAT 95–97
[2019-08-26] MEDS: Ketorolac 30 MG/ML Syringe IV ×4 (02:06→19:58)
[2019-08-26] MEDS: 0.9% Saline Lock 10 ML Syringe IV ×4 (02:06→19:58)
[2019-08-26 05:51] LABS: Hematocrit 30.2 % (37-47); Hemoglobin 10.6 g/dL (12.0-15.0); Mean Corp Hgb Conc 35.1 g/dL (32-36); Mean Corpuscular Hgb 33.5 pg (27.0-32.0); Mean Corpuscular Volume 95.6 fL (81-99); Platelet Count 356 K/mm3 (150-450); RBC Distribution Width CV 13.4 % (11.6-14.6); RBC Distribution Width SD 46.5 fl (35.1-43.9); Red Blood Count 3.16 M/mm3 (4.2-5.4); White Blood Count 11.3 K/mm3 (4.4-11.0)
--- NOTE | 2019-08-26 05:53 | NURSING ---
Pt moved hat from toilet. Unable to count this one as void. Instructed to leave hat in toilet.
[2019-08-26] MEDS: Enoxaparin 40 MG/0.4 ML Syringe SC ×2 (10:46→22:29)
--- NOTE | 2019-08-26 13:17 | PN.OBGYN_ITS ---
Subjective: Pain controlled. She reports a cough and recent URI. Patient uses an albuterol inhaler at home when she needs it. Denies SOB. - Physical Exam Vitals/I&O's: Vital Signs Temp Pulse Resp BP Pulse Ox 97.5 F L 84 20 H 126/73 H 97 08/26/19 12:25 08/26/19 12:25 08/26/19 12:25 08/26/19 12:25 08/26/19 12:25 Oxygen Delivery Method Room Air Weight: 244 lb 4.355 oz Body Mass Index (BMI) 44.6 Intake and Output for Last 24 Hours 08/24/19 08/25/19 08/26/19 23:59 23:59 23:59 Intake Total 3510.00 / 3510.00 2126.67 / 2126.67 Output Total 1000 / 1000 1900 / 1900 Balance 2510.00 / 2510.00 226.67 / 226.67 General: Alert, Oriented x3 Abdomen: Soft, Non Tender, Non-Distended - ff mid & below umb; bandage - scant dried blood, otherwise dry & intact, Splenomegaly Extremities: No Calf Tenderness Laboratory Results 08/25/19 15:55: WBC 18.7 H, RBC 4.13 L, Hgb 13.0, Hct 38.7, MCV 93.7, MCH 31.5, MCHC 33.6, RDW Std Deviation 45.4 H, RDW Coeff of Kalani 13.4, Plt Count 358, MPV 8.9 08/25/19 15:55: Screen NEGATIVE, Baby's Blood Type O POSITIVE, Baby's BETI NEGATIVE 08/26/19 05:10: WBC 11.3 H, RBC 3.16 L, Hgb 10.6 L, Hct 30.2 L, MCV 95.6, MCH 33.5 H, MCHC 35.1, RDW Std Deviation 46.5 H, RDW Coeff of Kalani 13.4, Plt Count 356, MPV 9.0 Current Medications Acetaminophen (Tylenol) 1,000 mg PO Q8H PRN PRN Reason: Pain Score 1-3/10 Bisacodyl (Dulcolax) 10 mg RECTAL UD PRN PRN Reason: If no BM Diphenhydramine HCl (Benadryl) 25 mg PO TID PRN PRN PRN Reason: ITCHING Last Admin: 08/25/19 14:58 Dose: 25 mg Documented by: Enoxaparin Sodium (Lovenox) 40 mg SC BID [facility] Last Admin: 08/26/19 10:46 Dose: 40 mg Documented by: Hydrocortisone (Hytone) 1 applic TOPICAL TID PRN PRN; Protocol PRN Reason: Discomfort Naloxone HCl 4 mg/ Dextrose 504 mls @ 0 mls/hr IV .Q0M PRN; Protocol PRN Reason: Respiratory depression Ketorolac Tromethamine (Toradol (Bkc)) 30 mg IV Q6H [facility] Stop: 08/30/19 19:31 Last Admin: 08/26/19 08:13 Dose: 30 mg Documented by: Methylergonovine Maleate (Methergine) 0.2 mg IM X1 PRN PRN Reason: Uterine Atony Last Admin: 08/25/19 14:05 Dose: 0.2 mg Documented by: Naloxone HCl (Narcan) 0.02 mg IV Q1M PRN PRN Reason: RR <10 and pt unresponsive Naproxen (Naprosyn) 250 - 500 mg PO Q8H PRN PRN PRN Reason: Pain Score 1-3/10 Nicotine (Nicoderm Cq (Pbkc)) 14 mg TRANSDERM. DAILY [facility] Last Admin: 08/26/19 10:45 Dose: Not Given Documented by: Ondansetron HCl (Zofran) 4 mg IV Q4H PRN PRN PRN Reason: Nausea Last Admin: 08/25/19 17:25 Dose: 4 mg Documented by: Oxycodone HCl (Oxyir) 5 - 10 mg PO Q4H PRN PRN PRN Reason: Pain Score 4-10/10 Prochlorperazine Edisylate (Compazine Iv) 10 mg IV Q6H PRN PRN PRN Reason: NAUSEA Senna/Docusate Sodium (Senokot-S, Tracie-Colace) 0 tablet PO DAILY PRN PRN Reason: Constipation Simethicone (Mylicon) 80 mg PO PCHS PRN PRN Reason: Indigestion/stomach pain Sodium Chloride () 5 - 15 ml IV UD PRN PRN Reason: SALINE FLUSH Last Admin: 08/26/19 08:07 Dose: 10 ml Documented by: Medical Necessity - Tobacco Use Smoking Status: Current every day smoker Assessment/Plan All Active Problems (Last Reviewed 06/02/19 @ 10:16 by Amrit Edwards) Abdominal pain affecting (Acute) 23 weeks gestation of (Acute) POD#1 Heme - HDS, cbc reviewed GI - ADAT - vazquez out, no voiding concerns PreE - BP's overall normal since delivery Pulm - breathing treatment per respiratory, continue IS
[2019-08-26] MEDS: Famotidine 20 MG Tablet PO (17:31)
[2019-08-26] MEDS: Senna/Docusate Sodium 1 Tablet PO (20:10)
[2019-08-26] MEDS: Albuterol 2.5 MG/3 ML VIAL.NEB. INHALATION (23:48)
[2019-08-27] VITALS (9 sets, daily range): BP systolic 143–158; BP diastolic 67–89; PULSE 81–101; RESP 16–20; TEMP 36.8–37.2
[2019-08-27] MEDS: Naproxen 250 MG Tablet PO ×2 (02:01→11:05)
[2019-08-27] MEDS: Acetaminophen 500 MG Tablet 1000 MG PO ×3 (06:26→19:21)
--- NOTE | 2019-08-27 06:29 | PCM.PN.OB ---
Subjective: Pain controlled. Breathing & cough much improved with treatments. Denies headaches or SOB. - Physical Exam Vitals/I&O's: Vital Signs Temp Pulse Resp BP Pulse Ox 98.9 F 86 16 157/89 H 95 08/27/19 06:00 08/27/19 06:00 08/27/19 06:00 08/27/19 06:00 08/26/19 16:15 Oxygen Delivery Method Room Air Weight: 244 lb 4.355 oz Body Mass Index (BMI) 44.6 Intake and Output for Last 24 Hours 08/25/19 08/26/19 08/27/19 23:59 23:59 23:59 Intake Total 3510.00 / 3510.00 2126.67 / 2126.67 Output Total 1000 / 1000 1900 / 1900 Balance 2510.00 / 2510.00 226.67 / 226.67 General: Alert, Oriented x3 Abdomen: Soft, Non Tender, Non-Distended - ff mid & below umb; inc - bandage with scant dried blood, dry & intact Extremities: No Calf Tenderness Current Medications Acetaminophen (Tylenol) 1,000 mg PO Q8H PRN PRN Reason: Pain Score 1-3/10 Last Admin: 08/27/19 06:26 Dose: 1,000 mg Documented by: Albuterol Sulfate (Ventolin Aerosols) 2.5 mg INHALATION Q6HWA.RT [facility] Last Admin: 08/26/19 23:48 Dose: 2.5 mg Documented by: Bisacodyl (Dulcolax) 10 mg RECTAL UD PRN PRN Reason: If no BM Diphenhydramine HCl (Benadryl) 25 mg PO TID PRN PRN PRN Reason: ITCHING Last Admin: 08/25/19 14:58 Dose: 25 mg Documented by: Enoxaparin Sodium (Lovenox) 40 mg SC BID [facility] Last Admin: 08/26/19 22:29 Dose: 40 mg Documented by: Famotidine (Pepcid) 20 mg PO BID [facility] Last Admin: 08/26/19 17:31 Dose: 20 mg Documented by: Hydrocortisone (Hytone) 1 applic TOPICAL TID PRN PRN; Protocol PRN Reason: Discomfort Naloxone HCl 4 mg/ Dextrose 504 mls @ 0 mls/hr IV .Q0M PRN; Protocol PRN Reason: Respiratory depression Ketorolac Tromethamine (Toradol (Bkc)) 30 mg IV Q6H [facility] Stop: 08/30/19 19:31 Last Admin: 08/27/19 02:02 Dose: Not Given Documented by: Methylergonovine Maleate (Methergine) 0.2 mg IM X1 PRN PRN Reason: Uterine Atony Last Admin: 08/25/19 14:05 Dose: 0.2 mg Documented by: Naloxone HCl (Narcan) 0.02 mg IV Q1M PRN PRN Reason: RR <10 and pt unresponsive Naproxen (Naprosyn) 250 - 500 mg PO Q8H PRN PRN PRN Reason: Pain Score 1-3/10 Last Admin: 08/27/19 02:01 Dose: 500 mg Documented by: Nicotine (Nicoderm Cq (Pbkc)) 14 mg TRANSDERM. DAILY [facility] Last Admin: 08/26/19 10:45 Dose: Not Given Documented by: Nifedipine (Procardia Xl) 30 mg PO DAILY [facility] Ondansetron HCl (Zofran) 4 mg IV Q4H PRN PRN PRN Reason: Nausea Last Admin: 08/25/19 17:25 Dose: 4 mg Documented by: Oxycodone HCl (Oxyir) 5 - 10 mg PO Q4H PRN PRN PRN Reason: Pain Score 4-10/10 Prochlorperazine Edisylate (Compazine Iv) 10 mg IV Q6H PRN PRN PRN Reason: NAUSEA Senna/Docusate Sodium (Senokot-S, Tracie-Colace) 0 tablet PO DAILY PRN PRN Reason: Constipation Last Admin: 08/26/19 20:10 Dose: 2 tablet Documented by: Simethicone (Mylicon) 80 mg PO PCHS PRN PRN Reason: Indigestion/stomach pain Sodium Chloride () 5 - 15 ml IV UD PRN PRN Reason: SALINE FLUSH Last Admin: 08/26/19 19:58 Dose: 10 ml Documented by: Medical Necessity - Tobacco Use Smoking Status: Current every day smoker Assessment/Plan All Active Problems (Last Reviewed 06/02/19 @ 10:16 by Amrit Edwards) Abdominal pain affecting (Acute) 23 weeks gestation of (Acute) POD#2 PreE - BP's mildly elevated, will start procardia XL 30mg Asthma/URI/tobacco use - continue albuterol nebulizer treatments per respiratory Routine care
[2019-08-27] MEDS: NIFEdipine 30 MG Tablet PO (06:52)
[2019-08-27] MEDS: Albuterol 2.5 MG/3 ML VIAL.NEB. INHALATION ×3 (07:36→20:32)
[2019-08-27] MEDS: Famotidine 20 MG Tablet PO (11:05)
[2019-08-27] MEDS: Senna/Docusate Sodium 1 Tablet PO ×2 (11:05→21:43)
[2019-08-27] MEDS: Enoxaparin 40 MG/0.4 ML Syringe SC ×2 (11:05→21:43)
[2019-08-28 02:30] VITALS: BP 150/85; PULSE 95; RESP 16; TEMP 36.9
[2019-08-28] MEDS: Naproxen 250 MG Tablet PO (03:51)
[2019-08-28 07:28] VITALS: PULSE 88; RESP 20
[2019-08-28] MEDS: Albuterol 2.5 MG/3 ML VIAL.NEB. INHALATION (07:28)
[2019-08-28] MEDS: Senna/Docusate Sodium 1 Tablet PO (07:42)
[2019-08-28] MEDS: Acetaminophen 500 MG Tablet 1000 MG PO (07:43)
--- NOTE | 2019-08-28 08:37 | DCINST_ITS ---
Discharge Diet: No Restrictions Discharge Activity: Return to Normal Activity, May Not Drive - for 2 weeks, May not drive while taking narcotic pain medications., May Shower, May Take a Tub Bath - in 7 days. May resume sexual activity in: 4-6 weeks Lifting Restrictions: 20 pounds Additional Activity Instructions:: Nothing in the vagina for 4-6 weeks. You may return to work/school in 6 weeks. Call your doctor if your incision/area has: Continuous Slow Oozing, Sudden Increased Bleeding, Increased Pain/ Swelling, Increased Redness, Foul Smelling Discharge Call your doctor if you observe: Fever of 101 or Higher, Using more than one pad per hour - for 2 hours Suture Line Care: Avoid Pulling/Pushing, Avoid Pinching/Bending Cleanse incision/area with: Keep Dressing Clean & Dry Additional Instructions: If you experience any of the following, contact your healthcare provider. * Bleeding that soaks a pad every hour for 2 hours * Fever 100.4 or higher * Unrelieved incision or abdominal pain * Swelling, redness, discharge or bleeding from your incision or episiotomy site * Your incision begins to separate * Problems urinating (including inability to urinate or burning while urinating). * Visual changes * Severe headache * Flu-like symptoms * Pain or redness in one of both of your breasts * Pain, warmth, tenderness or swelling in your legs, especially the calf area * Frequent nausea and vomiting * Symptoms of depression or anxiety If you experience any of the following, call 911 or go to the nearest Emergency Room. * Chest pain * Problems breathing * Seizure activity * Partial or complete paralysis of a body part, slurred speech, weakness or drooping of the face, or a sudden inability to walk or hold your balance Allergies/Adverse Reactions: Allergies varenicline [From Chantix] Allergy (Verified 08/24/19 23:10) Other made me crazy Medications to take at Discharge Vits [Prenatabs FA] 1 tab PO DAILY 02/22/19 Ibuprofen [Motrin] 600 mg PO Q6H PRN 30 Days #60 tab 08/28/19 NIFEdipine [Procardia Xl] 60 mg PO DAILY 60 Days #30 tab 08/28/19 Oxycodone [Oxyir] 5 mg PO Q6H PRN PRN 7 Days #20 tablet 08/28/19 The following prescriptions were given: Ibuprofen [Motrin] 600 mg PO Q6H PRN 30 Days #60 tab PRN Reason: Pain Transmission Status: Pending to [facility]/pharmacy #[id number] Oxycodone [Oxyir] 5 mg PO Q6H PRN PRN 7 Days #20 tablet PRN Reason: severe pain Transmission Status: Sent to [facility]/pharmacy #[id number] NIFEdipine [Procardia Xl] 60 mg PO DAILY 60 Days #30 tab Transmission Status: Pending to [facility]/pharmacy #[id number] Follow-Up: Call to make an appointment with your doctor for an incision check in 1-2 weeks. You will also need a 6 week post- follow up appointment. Test results from this visit will be discussed in further detail at your follow- up appointment, if applicable. Please Follow Up With: Evangelina Medina MD - Call to make an appointment for an incision check in 1-2 [phone] When: You will need a post check in 6 weeks. Primary Care Physician: Dion Davidson DO [Primary Care Provider] -
--- NOTE | 2019-08-28 08:38 | PCM.PN.OB ---
Subjective: Pain well controlled. Average lochia. Denies any headache or visual changes. Positive bowel movement. - Physical Exam Vitals/I&O's: Vital Signs Temp Pulse Resp BP Pulse Ox 98.4 F 95 16 150/85 H 95 08/28/19 02:30 08/28/19 02:30 08/28/19 02:30 08/28/19 02:30 08/26/19 16:15 Oxygen Delivery Method Room Air Weight: 110.8 kg Body Mass Index (BMI) 44.6 Intake and Output for Last 24 Hours 08/26/19 08/27/19 08/28/19 23:59 23:59 23:59 Intake Total 2126.67 / 2126.67 Output Total 1900 / 1900 Balance 226.67 / 226.67 General: Alert, Cooperative, No apparent distress Abdomen: Soft, Non-Distended, Tender - Appropriately Extremities: Edema - 2+ Skin: Incision - Bandage is clean dry and intact Current Medications Acetaminophen (Tylenol) 1,000 mg PO Q8H PRN PRN Reason: Pain Score 1-3/10 Last Admin: 08/28/19 07:43 Dose: 1,000 mg Documented by: Albuterol Sulfate (Ventolin Aerosols) 2.5 mg INHALATION Q6HWA.RT [facility] Last Admin: 08/28/19 07:28 Dose: 2.5 mg Documented by: Bisacodyl (Dulcolax) 10 mg RECTAL UD PRN PRN Reason: If no BM Diphenhydramine HCl (Benadryl) 25 mg PO TID PRN PRN PRN Reason: ITCHING Last Admin: 08/25/19 14:58 Dose: 25 mg Documented by: Enoxaparin Sodium (Lovenox) 40 mg SC BID [facility] Last Admin: 08/27/19 21:43 Dose: 40 mg Documented by: Famotidine (Pepcid) 20 mg PO BID [facility] Last Admin: 08/27/19 22:23 Dose: Not Given Documented by: Hydrocortisone (Hytone) 1 applic TOPICAL TID PRN PRN; Protocol PRN Reason: Discomfort Naloxone HCl 4 mg/ Dextrose 504 mls @ 0 mls/hr IV .Q0M PRN; Protocol PRN Reason: Respiratory depression Methylergonovine Maleate (Methergine) 0.2 mg IM X1 PRN PRN Reason: Uterine Atony Last Admin: 08/25/19 14:05 Dose: 0.2 mg Documented by: Naloxone HCl (Narcan) 0.02 mg IV Q1M PRN PRN Reason: RR <10 and pt unresponsive Naproxen (Naprosyn) 250 - 500 mg PO Q8H PRN PRN PRN Reason: Pain Score 1-3/10 Last Admin: 08/28/19 03:51 Dose: 500 mg Documented by: Nifedipine (Procardia Xl) 60 mg PO DAILY [facility] Ondansetron HCl (Zofran) 4 mg IV Q4H PRN PRN PRN Reason: Nausea Last Admin: 08/25/19 17:25 Dose: 4 mg Documented by: Oxycodone HCl (Oxyir) 5 - 10 mg PO Q4H PRN PRN PRN Reason: Pain Score 4-10/10 Prochlorperazine Edisylate (Compazine Iv) 10 mg IV Q6H PRN PRN PRN Reason: NAUSEA Senna/Docusate Sodium (Senokot-S, Tracie-Colace) 0 tablet PO DAILY PRN PRN Reason: Constipation Last Admin: 08/28/19 07:42 Dose: 2 tablet Documented by: Simethicone (Mylicon) 80 mg PO PCHS PRN PRN Reason: Indigestion/stomach pain Sodium Chloride () 5 - 15 ml IV UD PRN PRN Reason: SALINE FLUSH Last Admin: 08/26/19 19:58 Dose: 10 ml Documented by: Medical Necessity - Tobacco Use Smoking Status: Current every day smoker Assessment/Plan All Active Problems (Last Reviewed 06/02/19 @ 10:16 by Amrit Edwards) Abdominal pain affecting (Acute) 23 weeks gestation of (Acute) Postoperative day #3 status post repeat with bilateral salpingectomy. Patient are doing well. Ready for discharge home. Had preeclampsia without severe features. Blood pressures remain elevated. Will increase Procardia to 60 mg daily. Follow-up in the office in 1 to 2 weeks or as needed.
--- NOTE | 2019-08-28 08:42 | DS.PCM_ITS ---
Discharge Date and Diagnosis Date of Admission: 08/24/19 Date of Discharge: 08/28/19 Hospital Course and Treatment Consultations 08/25/19 12:26 Consult: Mental Health/Crisis Routine Reason for consult?: BETO for baby due to taking about 6 oxyir for root canal. baby's urine positive for THC due to mother taking CBD oil Date Notified:: 08/26/19 Time notified:: 10:02 Operations: - - Repeat low transverse section with bilateral salpingectomy Procedures: None Summary of Care Provided: The patient is a 33-year-old female multigravida admitted at 37+ gestational weeks with preeclampsia without severe features. was scheduled for the following morning. It was performed on 08/25/2019 without complications. She underwent a bilateral salpingectomy for sterilization. Postoperatively the patient did well but had some elevated blood pressures. She was placed on Procardia 30 mg and then that was increased to 60 mg for discharge. She is to follow-up in the office within 1 week for blood pressure check or as needed. She declined a prescription for narcotics. Routine discharge directions and prescriptions given. [] - Physical Exam Vitals/I&O's: Vital Signs Temp Pulse Resp BP Pulse Ox 98.4 F 95 16 150/85 H 95 08/28/19 02:30 08/28/19 02:30 08/28/19 02:30 08/28/19 02:30 08/26/19 16:15 Oxygen Delivery Method Room Air Weight: 110.8 kg Body Mass Index (BMI) 44.6 Intake and Output for Last 24 Hours 08/26/19 08/27/19 08/28/19 23:59 23:59 23:59 Intake Total 2126.67 / 2126.67 Output Total 1900 / 1900 Balance 226.67 / 226.67 Current Medications Acetaminophen (Tylenol) 1,000 mg PO Q8H PRN PRN Reason: Pain Score 1-3/10 Last Admin: 08/28/19 07:43 Dose: 1,000 mg Documented by: Albuterol Sulfate (Ventolin Aerosols) 2.5 mg INHALATION Q6HWA.RT [facility] Last Admin: 08/28/19 07:28 Dose: 2.5 mg Documented by: Bisacodyl (Dulcolax) 10 mg RECTAL UD PRN PRN Reason: If no BM Diphenhydramine HCl (Benadryl) 25 mg PO TID PRN PRN PRN Reason: ITCHING Last Admin: 08/25/19 14:58 Dose: 25 mg Documented by: Enoxaparin Sodium (Lovenox) 40 mg SC BID [facility] Last Admin: 08/27/19 21:43 Dose: 40 mg Documented by: Famotidine (Pepcid) 20 mg PO BID [facility] Last Admin: 08/27/19 22:23 Dose: Not Given Documented by: Hydrocortisone (Hytone) 1 applic TOPICAL TID PRN PRN; Protocol PRN Reason: Discomfort Naloxone HCl 4 mg/ Dextrose 504 mls @ 0 mls/hr IV .Q0M PRN; Protocol PRN Reason: Respiratory depression Methylergonovine Maleate (Methergine) 0.2 mg IM X1 PRN PRN Reason: Uterine Atony Last Admin: 08/25/19 14:05 Dose: 0.2 mg Documented by: Naloxone HCl (Narcan) 0.02 mg IV Q1M PRN PRN Reason: RR <10 and pt unresponsive Naproxen (Naprosyn) 250 - 500 mg PO Q8H PRN PRN PRN Reason: Pain Score 1-3/10 Last Admin: 08/28/19 03:51 Dose: 500 mg Documented by: Nifedipine (Procardia Xl) 60 mg PO DAILY [facility] Ondansetron HCl (Zofran) 4 mg IV Q4H PRN PRN PRN Reason: Nausea Last Admin: 08/25/19 17:25 Dose: 4 mg Documented by: Oxycodone HCl (Oxyir) 5 - 10 mg PO Q4H PRN PRN PRN Reason: Pain Score 4-10/10 Prochlorperazine Edisylate (Compazine Iv) 10 mg IV Q6H PRN PRN PRN Reason: NAUSEA Senna/Docusate Sodium (Senokot-S, Tracie-Colace) 0 tablet PO DAILY PRN PRN Reason: Constipation Last Admin: 08/28/19 07:42 Dose: 2 tablet Documented by: Simethicone (Mylicon) 80 mg PO PCHS PRN PRN Reason: Indigestion/stomach pain Sodium Chloride () 5 - 15 ml IV UD PRN PRN Reason: SALINE FLUSH Last Admin: 08/26/19 19:58 Dose: 10 ml Documented by: Discharge Diet: No Restrictions Discharge Activity: Return to Normal Activity, May Not Drive - for 2 weeks, May not drive while taking narcotic pain medications., May Shower, May Take a Tub Bath - in 7 days. May resume sexual activity in: 4-6 weeks Additional Activity Instructions:: Nothing in the vagina for 4-6 weeks. You may return to work/school in 6 weeks. Call your doctor if your incision/area has: Continuous Slow Oozing, Sudden Increased Bleeding, Increased Pain/ Swelling, Increased Redness, Foul Smelling Discharge Call your doctor if you observe: Fever of 101 or Higher, Using more than one pad per hour - for 2 hours Suture Line Care: Avoid Pulling/Pushing, Avoid Pinching/Bending Cleanse incision/area with: Keep Dressing Clean & Dry Home Medications: Medications to take at Discharge Vits [Prenatabs FA] 1 tab PO DAILY 02/22/19 Ibuprofen [Motrin] 600 mg PO Q6H PRN 30 Days #60 tab 08/28/19 NIFEdipine [Procardia Xl] 60 mg PO DAILY 60 Days #30 tab 08/28/19 Following Prescrptions Were Given to Patient: Ibuprofen [Motrin] 600 mg PO Q6H PRN 30 Days #60 tab PRN Reason: Pain Transmission Status: Received by [facility]pharmacy #[id number] NIFEdipine [Procardia Xl] 60 mg PO DAILY 60 Days #30 tab Transmission Status: Received by [facility] #[id number] Primary Care Physician: Dion Davidson DO [Primary Care Provider] - Please Follow Up With: Evangelnia Medina MD - Call to make an appointment for an incision check in 1-2 [phone] When: You will need a post check in 6 weeks. Medical Necessity - Tobacco Use Smoking Status: Current every day smoker Meaningful Use Info Meaningful Use Diagnoses (Choose all that apply): None applicable
[2019-08-28] MEDS: NIFEdipine 60 MG Tablet PO (09:41)
[2019-08-28] MEDS: Enoxaparin 40 MG/0.4 ML Syringe SC (09:41)
[2019-08-28 09:51] VITALS: BP 150/75; PULSE 96; RESP 18; TEMP 36.9
--- NOTE | 2019-08-28 14:53 | NURSING ---
Pt wished to be discharged this am by 10:30. Social work assessment not done. pass worker unavailable at this time. Fidelina Black RN charge nurse informed. OK to discharge pt to home with social work to follow up via phone.
== END 2019-08-28 10:30 | disposition home or self-care (01) | DRG 539 ==
LOC: WPOUT 04:41 → WP 04:41
PROVIDERS: Obstetrics & Gynecology; Admitting Provider Obstetrics & Gynecology; PCP Student in an Organized Health Care Education/Training Program; Visit Provider Obstetrics & Gynecology
PROC: 10D00Z1 Extraction of Products of Conception, Low, Open Approach (ICD-10-PCS; CPT 59514; principal; 2019-08-25 07:15)
DX: O14.04 Mild to moderate pre-eclampsia, complicating childbirth (principal); O34.211 Maternal care for low transverse scar from previous cesarean delivery; O60.14X0 Preterm labor third trimester with preterm delivery third trimester, not applicable or unspecified; O99.214 Obesity complicating childbirth; E66.9 Obesity, unspecified; O99.334 Smoking (tobacco) complicating childbirth; F17.200 Nicotine dependence, unspecified, uncomplicated; Z3A.37 37 weeks gestation of pregnancy; Z37.0 Single live birth; Z79.82 Long term (current) use of aspirin; Z30.2 Encounter for sterilization
CPT/HCPCS: 36415; 59025; 59050; 82565; 82570; 84156; 84450; 84460; 84550; 85027; 85461; 85610; 85730; 86850; 86900; 86901; 88302; 90384; 94640; 99218; J7120; 90686; A4216; G0378; J2405; J2790

== ENCOUNTER 2020-01-10 22:55 | Emergency (ER) | payer MEDICAID, SELFPAY ==
[2019-08-24 16:32] VITALS: BMI 44.6
[2020-01-10 22:56] VITALS: BP 133/71; PULSE 92; RESP 14; TEMP 36.6; O2SAT 98; BMI 40.6
--- NOTE | 2020-01-10 23:13 | ED.VIS.GEN ---
History of Present Illness Chief Complaint: Allergic Reaction Narrative: 34-year-old female presents with localized reaction to an unknown bug which stung her on her right foot. She states she did not see this. She was not wearing shoes and stepped on outside. She states she has had localized allergic reactions to bee stings in the past but has not required epinephrine. She took Benadryl prior to arrival. She she did remove what ever stinger was in her foot. Past Medical History - Allergies and Home Meds Allergies/Adverse Reactions: Allergies varenicline [From Chantix] Allergy (Verified 01/10/20 22:56) Other made me jolly Primary Care Physician: Dion Davidson DO [Primary Care Provider] - Past Medical History: None Surgical History: noncontributory Lives: With Family Smoking Status: Current every day smoker Alcohol: None Drugs: None Review of Systems General: Denies: Chills, Fever, Sweats Eyes: Denies: Visual changes - bilaterally, Diplopia Cardiovascular: Denies: Chest pain, Palpitations Respiratory: Denies: Dyspnea, Cough, Dyspnea on exertion Gastrointestinal: Denies: Abdominal pain, Nausea, Vomiting, Diarrhea, Melena, Hematochezia Genitourinary: Denies: Dysuria, Hematuria, Frequency Musculoskeletal: Reports: Extremity Pain - In the plantar surface of the right foot Skin: Reports: - - Localized swelling of the plantar surface of the right foot. Neurological: Denies: Headache Allergy: Denies: Uticaria, Swelling of the mouth, Swelling of the tongue Physical Exam Vital Signs/Narrative: Vital Signs Temp Pulse Resp BP Pulse Ox 01/10/20 22:56 97.8 F 92 14 133/71 H 98 Inital Vital Signs reviewed: Yes General: Well nourished, No Acute Distress Head: Normocephalic, Atraumatic Cardiovascular: Regular rate, Regular rhythm Respiratory: No distress Skin: - - Localized swelling and erythema of the right foot distally. No cellulitic change. No increased warmth. Neurovascularly intact. Neurological: Alert Psychological: Normal affect Diagnostic/Tx/Re-eval - Medical Decision Making Presents with localized allergic reaction. She took Benadryl but still has some swelling in her right foot. She is given prednisone in the ED. I will place her on a short course of prednisone, Pepcid, Benadryl. She is given return precautions should she start to have infectious signs or symptoms. ED Disposition - Plan for ED Patient: Disposition: Home or Assisted Living Diagnosis: Allergic reaction Instructions: ED Allergic Reaction Local Other Prescriptions: DiphenhydrAMINE [Benadryl] 25 mg PO TID PRN PRN #12 cap PRN Reason: Itching Prescription Printed Prednisone [Deltasone] 60 mg PO DAILY #4 tab Prescription Printed Famotidine [Pepcid] 20 mg PO BID #10 tab Prescription Printed Referrals: Dion Davidson DO [Primary Care Provider] -
[2020-01-10] MEDS: predniSONE 20 MG Tablet 60 MG PO (23:55)
== END 2020-01-10 23:55 | disposition home or self-care (01) ==
PROVIDERS: Emergency Provider Student in an Organized Health Care Education/Training Program; PCP Student in an Organized Health Care Education/Training Program
DX: T63.481A Toxic effect of venom of other arthropod, accidental (unintentional), initial encounter (principal); Y92.9 Unspecified place or not applicable
CPT/HCPCS: 99283

== ENCOUNTER 2020-04-04 11:40 | Emergency (ER) | payer MEDICAID, SELFPAY ==
[2020-04-04 11:41] VITALS: BP 129/85; PULSE 96; RESP 18; TEMP 36.2; O2SAT 97; BMI 40.2
[2020-04-04 11:58] VITALS: BP 140/83; PULSE 108; RESP 14; O2SAT 97
--- NOTE | 2020-04-04 12:22 | RAD_ITS ---
STUDY: X-RAY CHEST REASON FOR EXAM: Female, 34 years old. FEVER,COUGH SINCE SUNDAY/SUNDAY. TECHNIQUE: AP COMPARISON: None. FINDINGS: EKG leads project over the chest. The lungs are clear and expanded. There is no demonstrated pleural abnormality. Normal size heart. Normal mediastinum and yue. Normal visualized pulmonary arteries. Normal visualized aortic arch and descending thoracic aorta. Normal visualized thoracic spine. Normal visualized ribs, clavicles, and shoulders. There is no demonstrated abnormality of the visualized soft tissue structures of the upper abdomen. RAD/Chest 1 View (Portable) IMPRESSION: Nonacute portable x-ray examination of the chest. Electronically Signed: Desean Noonan MD ([place]) at 15:14 EDT , Service support ,
--- NOTE | 2020-04-04 12:23 | RAD_ITS ---
STUDY: X-RAY - LEFT FOOT CLINICAL: Female, 34 years old. INFECTION TO ANTERIOR SURFACE, METATARSAL AREA. D/T SPIDER BITE. TECHNIQUE: 3 view(s) of the foot. COMPARISON: None. FINDINGS: Normal talus, calcaneus, and tarsal bones. Normal visualized subtalar, talonavicular, calcaneocuboid, tarsal and tarsometatarsal articulations. Normal metatarsi. Normal metatarsophalangeal joint of the great toe. Normal tibial and fibular sesamoid bones. Normal interphalangeal joint of the great toe. Normal phalanges of the great toe. Normal second through fifth metatarsophalangeal joints. Normal interphalangeal joints and phalanges of the lesser toes. There is soft tissue swelling of the dorsal forefoot. RAD/Foot min 3 Views IMPRESSION: Soft tissue swelling without demonstrated fracture. Electronically Signed: Desean Noonan MD ([place]) at 15:15 EDT , Service support ,
--- NOTE | 2020-04-04 12:25 | ED.VIS.GEN ---
History of Present Illness Chief Complaint: Fever Informant: Patient Onset: Yesterday Current Severity: Moderate Maximum Severity: Moderate Narrative: Patient present secondary to fever and body aches with nausea and vomiting. She states she woke ill yesterday morning. She had generalized body aches with fever along with nausea and vomiting. She did notice a wound on the top of her left foot yesterday morning. Since she initially discovered it the area around it has become more red with streaking up her leg. She does not remember an injury to her leg. She does have a mild cough that is slightly worse than baseline. She does not feel short of breath or feeling she is wheezing. She has no urinary symptoms. She denies exposure to anyone known to have Covid. She is a [id number] mom. - Past Medical History (1) Hypertension Status: Chronic (2) Anxiety and depression Status: Chronic Past Medical History - Allergies and Home Meds Allergies/Adverse Reactions: Allergies varenicline [From Chantix] Allergy (Verified 04/04/20 11:41) Other made me crazy Primary Care Physician: Dion Davidson DO [Primary Care Provider] - Surgical History: noncontributory Lives: With Family Smoking Status: Current every day smoker Review of Systems General: Reports: Chills, Fever Eyes: Denies: Visual changes - bilaterally ENT: Denies: Bilateral ear pain Cardiovascular: Denies: Chest pain Respiratory: Reports: Cough. Denies: Dyspnea, Sputum Gastrointestinal: Reports: Nausea, Vomiting. Denies: Diarrhea Genitourinary: Denies: Dysuria, Frequency Musculoskeletal: Reports: Myalgias, Swelling, Extremity Pain Skin: Reports: Wounds Neurological: Reports: Headache Hematologic: Denies: Easy bruising, Easy bleeding Allergy: Denies: Uticaria Physical Exam Vital Signs/Narrative: Vital Signs Temp Pulse Resp BP Pulse Ox 04/04/20 11:58 108 H 14 140/83 H 97 04/04/20 11:41 97.1 F L 96 18 129/85 H 97 Inital Vital Signs reviewed: Yes General: Well nourished, Well developed Head: Normocephalic ENT: Moist mucous membranes Neck: Supple Cardiovascular: Regular rate, Regular rhythm Respiratory: No distress, CTA bilaterally Abdomen: Soft, Nontender Extremities: - - Cluster of vesicles filled with prather fluid on the top of her left foot. There is surrounding cellulitis with lymphangitic streak noted onto the perez. No drainage from the wound. No tenderness over the plantar surface of the foot. Neurological: Alert, Oriented x3, Normal Strength, Normal Sensation Psychological: Normal affect Diagnostic/Tx/Re-eval Impressions Chest X-Ray 04/04/20 12:22 IMPRESSION: Nonacute portable x-ray examination of the chest. Electronically Signed: Desean Noonan MD ([place]) at 15:14 EDT , Service support , Foot X-Ray 04/04/20 12:23 IMPRESSION: Soft tissue swelling without demonstrated fracture. Electronically Signed: Desean Noonan MD ([place]) at 15:15 EDT , Service support , 04/04/20 12:22 Chest 1 View (Portable) [RAD] Stat 04/04/20 12:23 Foot min 3 Views [RAD] Stat Laboratory Results 04/04/20 04/04/20 04/04/20 12:42 13:10 13:10 WBC 9.6 RBC 4.96 Hgb 15.7 H Hct 45.4 MCV 91.5 MCH 31.7 MCHC 34.6 RDW Std Deviation 45.1 H RDW Coeff of Kalani 13.3 Plt Count 271 MPV 9.3 Immature Gran % (Auto) 0.600 Neut % (Auto) 80.6 H Lymph % (Auto) 11.6 L [place] % (Auto) 6.3 Eos % (Auto) 0.3 Baso % (Auto) 0.6 Absolute Neuts (auto) 7.7 Absolute Lymphs (auto) 1.11 Nucleated RBC % 0 Sodium 135 L Potassium 4.1 Chloride 105 Carbon Dioxide 24.0 Anion Gap 6 BUN 13 Creatinine 0.78 Estim Creat Clear Calc 81.14 Est GFR (MDRD) Af Amer 109 Est GFR (MDRD) Non-Af 90 BUN/Creatinine Ratio 16.7 Glucose 100 Lactic Acid Calcium 9.1 Urine Color Urine Clarity Urine pH Ur Specific [place] Urine Protein Urine Glucose (UA) Urine Ketones Urine Occult Blood Urine Nitrite Urine Bilirubin Urine Urobilinogen Ur Leukocyte Esterase Urine RBC Urine WBC Ur Squamous Epith Cells Urine Bacteria Urine Mucus COVID-19 (RANDELL) Not Detected 04/04/20 04/04/20 13:10 15:19 WBC RBC Hgb Hct MCV MCH MCHC RDW Std Deviation RDW Coeff of Kalani Plt Count MPV Immature Gran % (Auto) Neut % (Auto) Lymph % (Auto) [place] % (Auto) Eos % (Auto) Baso % (Auto) Absolute Neuts (auto) Absolute Lymphs (auto) Nucleated RBC % Sodium Potassium Chloride Carbon Dioxide Anion Gap BUN Creatinine Estim Creat Clear Calc Est GFR (MDRD) Af Amer Est GFR (MDRD) Non-Af BUN/Creatinine Ratio Glucose Lactic Acid 0.7 Calcium Urine Color Yellow Urine Clarity Sl. Cloudy Urine pH 6.0 Ur Specific [place] 1.025 Urine Protein 100 H Urine Glucose (UA) Normal Urine Ketones 5 H Urine Occult Blood 25 H Urine Nitrite Positive H Urine Bilirubin Negative Urine Urobilinogen 1 H Ur Leukocyte Esterase 100 H Urine RBC 0 SEEN Urine WBC 0-5 SEEN Ur Squamous Epith Cells 0-5 SEEN Urine Bacteria 0 SEEN Urine Mucus 0 SEEN COVID-19 (RANDELL) - Medical Decision Making Patient was given Toradol and Zofran along with IV fluids. She was given a dose of Zosyn and vancomycin. Blood and urine cultures were sent. Lactic acid is normal. Covid is negative. She does have positive nitrites in her urine. She also has evidence of infection with cellulitis to her left foot. There is no evidence of gas in the tissues on foot x-ray. Patient be treated with Bactrim and Keflex and given strict return instructions. She is comfortable with this plan. ED Disposition - Plan for ED Patient: Disposition: Home or Assisted Living Diagnosis: Cellulitis Instructions: ED Cellulitis Prescriptions: Smz/Tmp Ds [Bactrim Ds] 1 tablet PO BID #20 tablet Cephalexin [Keflex] 500 mg PO Q6 #40 capsule Ondansetron [Zofran Odt] 4 mg PO Q8H PRN PRN #10 tab PRN Reason: Nausea Transmission Status: Pending to [facility]acy #[id number] Referrals: Dion Davidson DO [Primary Care Provider] - 5-7 Days
[2020-04-04 13:39] LABS: Absolute Lymphocyte Count 1.11 X10^3/uL (0.83-4.51); Absolute Neutrophil Count 7.7 X10^3/uL (2.0-7.7); Basophil# 0.06 X10^3/uL; Basophil% 0.6 % (0-1); Eosinophil# 0.03 X10^3/uL; Eosinophils% 0.3 % (0-5); Hematocrit 45.4 % (37-47); Hemoglobin 15.7 g/dL (12.0-15.0); Lymphocyte # 1.11 X10^3/ul (4.0); Lymphocyte % 11.6 % (19-41); Mean Corp Hgb Conc 34.6 g/dL (32-36); Mean Corpuscular Hgb 31.7 pg (27.0-32.0); Mean Corpuscular Volume 91.5 fL (81-99); Mean Platelet Vol. 9.3 fl (6.2-12.0); Monocyte# 0.61 X10^3/uL; Monocyte% 6.3 % (0-10); NRBC Flagged by Analyzer 0 % (0-5); Neutrophil # 7.74 X10^3/uL (2.7-7.7); Neutrophil % 80.6 % (47-70); Platelet Count 271 K/mm3 (150-450); RBC Distribution Width CV 13.3 % (11.6-14.6); RBC Distribution Width SD 45.1 fl (35.1-43.9); Red Blood Count 4.96 M/mm3 (4.2-5.4); White Blood Count 9.6 K/mm3 (4.4-11.0)
[2020-04-04] MEDS: 0.9% Normal Saline 1,000 ML 150 ML IV (13:42)
[2020-04-04] MEDS: Ketorolac 30 MG/ML Syringe IV (13:43)
[2020-04-04] MEDS: Ondansetron 4 MG/2 ML Vial IV (13:43)
[2020-04-04 13:45] VITALS: BP 122/85; PULSE 105; RESP 19; O2SAT 96
[2020-04-04 13:53] LABS: Anion Gap 6 (5-15); BUN 13 mg/dL (7-18); BUN/Creat Ratio 16.7 RATIO (10-20); Calcium,Total 9.1 mg/dL (8.5-10.1); Chloride 105 mmol/L (98-107); Creatinine, Serum 0.78 mg/dL (0.55-1.02); EST Glomerular Filtration Rate 90 mL/min (>60); Est Glom Filt Rate - Afr Amer 109 mL/min (>60); Estimated Creatinine Clearance 81.14 ml/min; Glucose 100 mg/dL (74-106); Lactic Acid 0.7 mmol/L (0.4-1.9); Potassium 4.1 mmol/L (3.5-5.1); Sodium Level 135 mmol/L (136-145)
[2020-04-04 15:24] VITALS: BP 128/80; PULSE 95; RESP 25; O2SAT 96
[2020-04-04 15:31] LABS: Bacteria 0 SEEN /hpf (None Seen); Mucous, Urine 0 SEEN /hpf (<or=2+); Red Blood Cells-Urine 0 SEEN /hpf (0-5)
[2020-04-04 15:32] LABS: Color, Urine Yellow (Yellow); Glucose, Dipstick Normal (Normal); Ketone-Dipstick 5 mg/dl (Negative); Leukocyte Esterase-Dipstick 100 /ul (Negative); Nitrite-Dipstick Positive (Negative); Occult Blood-Urine 25 /ul (Negative); Protein-Dipstick 100 mg/dl (Negative); Specific Gravity, Urine 1.025 (1.002-1.030); Urine Bilirubin Dipstick Negative (Negative); Urine Clarity Sl. Cloudy (Clear); Urine Urobilinogen 1 mg/dl (Normal)
[2020-04-04 15:37] LABS: Squamous Epithelial Cells - UA 0-5 SEEN /hpf (5-10)
[2020-04-04 15:38] LABS: White Blood Cells 0-5 SEEN /hpf (0-5)
[2020-04-04 17:08] VITALS: BP 118/76; PULSE 82; RESP 24; O2SAT 95
[2020-04-04 18:11] VITALS: BP 120/87; PULSE 84; RESP 20; O2SAT 97
== END 2020-04-04 18:30 | disposition home or self-care (01) ==
PROVIDERS: Emergency Provider Emergency Medicine; PCP Student in an Organized Health Care Education/Training Program
DX: L03.116 Cellulitis of left lower limb (principal); I10 Essential (primary) hypertension; F17.200 Nicotine dependence, unspecified, uncomplicated
CPT/HCPCS: 71045; 73630; 80048; 81001; 83605; 85025; 87040; 87086; 87088; 87186; 87635; 96365; 96366; 96367; 96374; 96375; 99284; J7030; J7040; A4216; J2405; U0003

== ENCOUNTER 2020-04-05 17:41 | Emergency (ER) | payer MEDICAID, SELFPAY ==
[2020-04-04 11:41] VITALS: BMI 40.2
[2020-04-05 17:42] VITALS: BP 139/91; PULSE 89; RESP 18; TEMP 36.9; O2SAT 96; BMI 41.4
[2020-04-05 17:48] VITALS: BP 133/68; PULSE 99; RESP 16; TEMP 36.9; O2SAT 97
--- NOTE | 2020-04-05 18:08 | EKG12_ITS ---
Test Reason : SYNCOPE Blood Pressure : / mmHG Vent. Rate : 086 BPM Atrial Rate : 086 BPM P-R Int : 158 ms QRS Dur : 086 ms QT Int : 354 ms P-R-T Axes : 021 068 034 degrees QTc Int : 423 ms Normal sinus rhythm Normal ECG Confirmed by SUNSHINE PERALTA, JENNIFER ([id number]), editor city ASHLEY HAMEED ([id number]) on 04/12/2020 8:40:37 A M Referred By: Confirmed By:RAINER GONSALEZ MD
--- NOTE | 2020-04-05 18:09 | ED.DCSUM_ITS ---
History of Present Illness Chief Complaint: Syncope Informant: Patient Onset: Today Narrative: Patient was seen yesterday for fever and cellulitis of the left lower extremity. After work-up here she was discharged home with antibiotics and Zofran. Patient states that she felt very warm today and went outside. While standing outside she states everything went black and she passed out to the ground. She states she remembers laying on the ground and hearing her calling to her but she was not able to respond. She does not remember if she had palpitations or chest pain prior to her syncopal episode. She does state that in spite of the Zofran that she was discharged with she does still have nausea. T-max today has been 101. - Past Medical History (1) Hypertension Status: Chronic (2) Anxiety and depression Status: Chronic Past Medical History - Allergies and Home Meds Allergies/Adverse Reactions: Allergies varenicline [From Chantix] Allergy (Verified 04/05/20 17:46) Other made me crazy Primary Care Physician: Dion Davidson DO [Primary Care Provider] - Prior records reviewed: Yes Surgical History: noncontributory Lives: With Family Smoking Status: Current every day smoker Review of Systems General: Reports: Fever Eyes: Denies: Visual changes - bilaterally ENT: Denies: Bilateral ear pain Cardiovascular: Denies: Chest pain, Palpitations Respiratory: Denies: Dyspnea Gastrointestinal: Reports: Nausea, Vomiting. Denies: Abdominal pain Genitourinary: Denies: Dysuria Musculoskeletal: Reports: Extremity Pain Skin: Reports: Wounds Hematologic: Denies: Easy bruising, Easy bleeding Allergy: Denies: Uticaria Physical Exam Vital Signs/Narrative: Vital Signs Temp Pulse Resp BP Pulse Ox 04/05/20 17:48 98.4 F 99 16 133/68 H 97 04/05/20 17:42 98.4 F 89 18 139/91 H 96 Inital Vital Signs reviewed: Yes General: Well nourished, Well developed Head: Normocephalic ENT: Moist mucous membranes Neck: Supple Cardiovascular: Regular rate, Regular rhythm Respiratory: No distress, CTA bilaterally Abdomen: Soft, Nontender Extremities: - - Cellulitis of the left lower extremity, improved when compared to exam yesterday. Neurological: Alert, Oriented x3, Normal Strength, Normal Sensation Psychological: Normal affect Diagnostic/Tx/Re-eval Laboratory Results 04/05/20 04/05/20 04/05/20 18:32 18:32 18:32 WBC 6.9 RBC 4.77 Hgb 14.5 Hct 44.3 MCV 92.9 MCH 30.4 MCHC 32.7 D RDW Std Deviation 44.8 H RDW Coeff of Kalani 13.1 Plt Count 280 MPV 9.2 Immature Gran % (Auto) 0.400 Neut % (Auto) 66.3 Lymph % (Auto) 19.6 [place] % (Auto) 9.1 Eos % (Auto) 3.9 Baso % (Auto) 0.7 Absolute Neuts (auto) 4.6 Absolute Lymphs (auto) 1.35 Nucleated RBC % 0 Sodium 138 Potassium 3.7 Chloride 107 Carbon Dioxide 25.0 Anion Gap 6 BUN 21 H Creatinine 1.05 H Estim Creat Clear Calc 60.27 Est GFR (MDRD) Af Amer 78 Est GFR (MDRD) Non-Af 64 BUN/Creatinine Ratio 20.0 Glucose 98 Lactic Acid 0.8 Calcium 9.0 - EKG Initial EKG Interpretation: Sinus Rhythm - Sinus 86 with no acute ischemia. - Medical Decision Making Patient was given IV fluids here along with Phenergan. This did control her nausea better. With this being patient's second visit in 2 days and having a syncopal episode today I did recommend hospitalization overnight for hydration and further treatment. At this time she is declining. is at bedside and states that he will keep a close eye on her. She will be given a prescription for Phenergan to try to better control her nausea. Cellulitis of the left lower extremity does look improved today and she will continue her antibiotics. ED Disposition - Plan for ED Patient: Disposition: Home or Assisted Living Diagnosis: Syncope, Vomiting, Cellulitis Instructions: ED Fainting Uncertain Cause, ED Vomiting and Diarrhea Nonspecific Adult, ED Cellulitis Prescriptions: proMETHazine tablet [Phenergan] 25 mg PO Q6H PRN PRN #10 tab PRN Reason: Nausea Transmission Status: Pending to [facility]/pharmacy #[id number] Referrals: Dion Davidson DO [Primary Care Provider] - 3-5 Days
[2020-04-05] MEDS: proMETHazine 25 MG/ML Syringe 12.5 MG IV (18:33)
[2020-04-05] MEDS: 0.9% Normal Saline 1,000 ML 1000 ML IV (18:36)
[2020-04-05 18:54] LABS: Absolute Lymphocyte Count 1.35 X10^3/uL (0.83-4.51); Absolute Neutrophil Count 4.6 X10^3/uL (2.0-7.7); Basophil# 0.05 X10^3/uL; Basophil% 0.7 % (0-1); Eosinophil# 0.27 X10^3/uL; Eosinophils% 3.9 % (0-5); Hematocrit 44.3 % (37-47); Hemoglobin 14.5 g/dL (12.0-15.0); Lymphocyte # 1.35 X10^3/ul (4.0); Lymphocyte % 19.6 % (19-41); Mean Corp Hgb Conc 32.7 g/dL (32-36); Mean Corpuscular Hgb 30.4 pg (27.0-32.0); Mean Corpuscular Volume 92.9 fL (81-99); Mean Platelet Vol. 9.2 fl (6.2-12.0); Monocyte# 0.63 X10^3/uL; Monocyte% 9.1 % (0-10); NRBC Flagged by Analyzer 0 % (0-5); Neutrophil # 4.57 X10^3/uL (2.7-7.7); Neutrophil % 66.3 % (47-70); Platelet Count 280 K/mm3 (150-450); RBC Distribution Width CV 13.1 % (11.6-14.6); RBC Distribution Width SD 44.8 fl (35.1-43.9); Red Blood Count 4.77 M/mm3 (4.2-5.4); White Blood Count 6.9 K/mm3 (4.4-11.0)
[2020-04-05 19:07] LABS: Anion Gap 6 (5-15); BUN 21 mg/dL (7-18); Chloride 107 mmol/L (98-107); Creatinine, Serum 1.05 mg/dL (0.55-1.02); EST Glomerular Filtration Rate 64 mL/min (>60); Est Glom Filt Rate - Afr Amer 78 mL/min (>60); Estimated Creatinine Clearance 60.27 ml/min; Glucose 98 mg/dL (74-106); Potassium 3.7 mmol/L (3.5-5.1); Sodium Level 138 mmol/L (136-145)
[2020-04-05 19:11] LABS: Lactic Acid 0.8 mmol/L (0.4-1.9)
== END 2020-04-05 19:58 | disposition home or self-care (01) ==
PROVIDERS: Emergency Provider Emergency Medicine; PCP Student in an Organized Health Care Education/Training Program
DX: R55 Syncope and collapse (principal); R11.2 Nausea with vomiting, unspecified; L03.116 Cellulitis of left lower limb; I10 Essential (primary) hypertension; F32.9 Major depressive disorder, single episode, unspecified; F41.9 Anxiety disorder, unspecified; F17.200 Nicotine dependence, unspecified, uncomplicated
CPT/HCPCS: 80048; 83605; 85025; 93005; 96361; 96374; 99283; 99285; J7030; A4216

== ENCOUNTER 2021-10-03 13:34 | Emergency (ER) | payer OTHER, MEDICAID, SELFPAY ==
[2021-10-03 13:35] VITALS: BP 143/92; PULSE 99; RESP 18; TEMP 36.5; O2SAT 98; BMI 40.2
--- NOTE | 2021-10-03 14:57 | EDS_ITS ---
HPI HPI - Female History of Present Illness Chief Complaint: Vag Bleeding Informant: patient Pain Pain: Positive for Pelvic Pain Onset: Today Context: Sudden Onset Timing: Continuous Quality: Positive for Cramping, Sharp and Stabbing Location: Suprapubic Worsened by: - (Nothing) Relieved by: - (Laying on abdomen) Bleeding Issue: Positive for Vaginal bleeding Onset: Today Timing: Continuous Current Severity: Heavy Maximum Severity: Heavy Associated Symptoms Associated Symptoms: Negative for Dysuria, Frequency and Hematuria Control: BTL Narrative Narrative: Patient presents with abnormal vaginal bleeding that began today. Patient states she felt like she passed a large clot at home earlier today. Patient states that she started having some cramping and stabbing pain after passing a large clot. Patient states it is mainly over the suprapubic area. Patient states it gets better whenever she lays on her abdomen. Patient states nothing makes it worse. Patient denies any urinary complaints. Patient states her last menstrual period was approximate 1 month ago. Patient states she does have some dizziness with standing. Patient states that she has a petechial rash over her abdomen and chest that she is scheduled to see a vending stand supervisor for. [facility] Medical History (Updated 10/03/21 @ 17:[address] Logan Yu, DO) COVID-19 Encounter for screening for COVID-19 SOB (shortness of breath) Home Medications dextroamphetamine-amphetamine 20 mg PO QODAY 01/10/20 [History Last Taken Unknown] ondansetron 4 mg PO Q8H PRN PRN #10 tab 04/04/20 [Rx Last Taken Unknown] L.acidoph, paracasei,B. lactis 1 ea PO DAILY 04/05/20 [History Last Taken Unknown] promethazine 25 mg PO Q6H PRN PRN #10 tab 04/05/20 [Rx Last Taken Unknown] azithromycin 250 mg tablet 250 mg PO QDAY #6 tab 07/21/21 [Rx Last Taken Unknown] dexamethasone 4 mg tablet 4 mg PO DAILY #5 tab 07/21/21 [Rx Last Taken Unknown] hydrocodone-acetaminophen 1 tab PO Q6H PRN PRN 3 Days #10 tablet 10/03/21 [Rx Last Taken Unknown] Allergy/AdvReac Type Severity Reaction Status Date / Time varenicline [From Chantix] Allergy Other Verified 10/03/21 13:38 Surgical History (Updated 10/03/21 @ 15:[address] Logan Yu, DO) History of Hx of abdominoplasty Hx of tubal ligation Social History Smoking Status: Current every day smoker tobacco type: cigarettes ROS ROS ED Constitutional Constitutional ED: Denies chills or fever(s) Eyes Eyes: Denies blurry vision or change in vision ENT ENT ED: Denies rhinorrhea or sore throat Cardiovascular Cardiovascular: Denies chest pain or palpitations Respiratory/Chest Respiratory/Chest: Denies cough or dyspnea Gastrointestinal Gastrointestinal: Reports nausea; Denies vomiting Genitourinary Genitourinary ED: Denies dysuria or hematuria Musculoskeletal Musculoskeletal: Reports back pain and neck pain Integumentary Denies abscess or rash Neurologic Neurologic: Denies headache(s) or weakness Allergic/Immunologic Allergic/Immunologic ED: Denies mouth swelling or urticaria EXAM Physical Exam Const Vital Signs: 10/03/21 13:35 10/03/21 15:40 Temperature 97.7 F L Temperature Source Temporal Pulse Rate 99 Pulse Rate [Lying] 66 Pulse Rate [Sitting (for 1 minute prior to obtaining)] 72 Pulse Rate [Standing (for 1 minute prior to obtaining)] 79 Respiratory Rate 18 Blood Pressure 143/92 H Blood Pressure [Lying] 102/56 L Blood Pressure [Sitting (for 1 minute prior to obtaining)] 121/78 H Blood Pressure [Standing (for 1 minute prior to obtaining)] 116/80 Blood Pressure Mean 109 Blood Pressure Mean [Lying] 71 Blood Pressure Mean [Sitting (for 1 minute prior to obtaining)] 92 Blood Pressure Mean [Standing (for 1 minute prior to obtaining)] 92 Pulse Ox 98 Oxygen Delivery Method Room Air Positive well nourished, well developed and obese General Appearance ED: well developed and NAD Nutritional Appearance: obese HEENT Reports moist mucous membranes Neck supple and no JVD Resp normal respiratory effort and clear to auscultation bilaterally Cardio regular rate, regular rhythm and no murmurs GI normal to inspection, nondistended, normoactive bowel sounds and soft to palpation Palpation: soft and tender suprapubic; Negative for guarding Extremity normal to inspection General Extremety ED: Negative for edema or tenderness General Extremity: Negative for edema Neuro oriented x3, CN's II-XII intact bilaterally and no sensory deficits noted Sensorium / Orientation: alert Motor Exam: strength 5/5 throughout Psych mental status grossly normal Skin no rashes or lesions noted MDM MDM MDM Narrative Medical decision making narrative: Patient was given morphine and Zofran here. CBC was essentially within normal limits. PT with INR and PTT were normal. Comprehensive metabolic profile was within normal limits. Serum hCG was negative. Urinalysis shows evidence of hematuria but there is no evidence of urinary tract infection. Patient was advised of her findings. Patient was instructed to follow-up with her primary care physician and vending stand supervisor as scheduled. Patient was given a prescription for a short course of [place]. Patient understood and was agreeable with the plan. All questions were answered. Lab Data Attestation: I reviewed the patient's lab results. Labs: Laboratory Results - last 24 hr 10/03/21 10/03/21 10/03/21 15:20 15:20 15:20 WBC 9.9 RBC 4.80 Hgb 14.9 Hct 43.6 MCV 90.8 MCH 31.0 MCHC 34.2 RDW Std Deviation 42.0 RDW Coeff of Kalani 12.7 Plt Count 371 MPV 8.6 Immature Gran % (Auto) 0.500 Neut % (Auto) 68.5 Lymph % (Auto) 23.8 [place] % (Auto) 3.8 Eos % (Auto) 2.4 Baso % (Auto) 1.0 Absolute Neuts (auto) 6.8 Absolute Lymphs (auto) 2.37 Nucleated RBC % 0 PT 13.3 INR 1.1 APTT 31.1 Sodium 138 Potassium 4.1 Chloride 109 H Carbon Dioxide 25.0 Anion Gap 4 L BUN 8 Creatinine 0.70 Estim Creat Clear Calc 89.56 Est GFR (MDRD) Af Amer 122 Est GFR (MDRD) Non-Af 101 BUN/Creatinine Ratio 11.4 Glucose 87 Calcium 9.6 Total Bilirubin 0.40 AST 11 L ALT 22 Alkaline Phosphatase 81 Total Protein 7.9 Albumin 3.9 Globulin 4.0 Albumin/Globulin Ratio 1.0 Serum , Qual Urine Color Urine Clarity Urine pH Ur Specific [place] Urine Protein Urine Glucose (UA) Urine Ketones Urine Occult Blood Urine Nitrite Urine Bilirubin Urine Urobilinogen Ur Leukocyte Esterase Urine RBC Urine WBC Ur Squamous Epith Cells Urine Bacteria Urine Mucus 10/03/21 10/03/21 15:20 15:20 WBC RBC Hgb Hct MCV MCH MCHC RDW Std Deviation RDW Coeff of Kalani Plt Count MPV Immature Gran % (Auto) Neut % (Auto) Lymph % (Auto) [place] % (Auto) Eos % (Auto) Baso % (Auto) Absolute Neuts (auto) Absolute Lymphs (auto) Nucleated RBC % PT INR APTT Sodium Potassium Chloride Carbon Dioxide Anion Gap BUN Creatinine Estim Creat Clear Calc Est GFR (MDRD) Af Amer Est GFR (MDRD) Non-Af BUN/Creatinine Ratio Glucose Calcium Total Bilirubin AST ALT Alkaline Phosphatase Total Protein Albumin Globulin Albumin/Globulin Ratio Serum , Qual NEGATIVE Urine Color Red Urine Clarity Cloudy Urine pH 7.0 Ur Specific [place] 1.010 Urine Protein 100 H Urine Glucose (UA) Normal Urine Ketones 5 H Urine Occult Blood 250 H Urine Nitrite Negative Urine Bilirubin Negative Urine Urobilinogen Normal Ur Leukocyte Esterase 25 H Urine RBC > 100 SEEN Urine WBC 0-5 SEEN Ur Squamous Epith Cells 0-5 SEEN Urine Bacteria 0 SEEN Urine Mucus 0 SEEN Discharge Plan Triage Chief Complaint: Vag Bleeding ED Provider: Logan Yu Dx/Rx/DC Orders Clinical Impression: Dysfunctional uterine bleeding, Pelvic pain Instructions: ED Dysfunctional Uterine Bleeding, ED Pelvic Pain, Unknown Cause Prescriptions: New hydrocodone-acetaminophen [hydrocodone-acetaminophen] 1 TABLET tablet 1 tab PO Q6H PRN PRN (Reason: Pain) 3 Days Qty: 10 RF: 0 No Action dexamethasone [Decadron] 4 mg tablet 4 mg PO DAILY Qty: 5 RF: 0 azithromycin 250 mg tablet 250 mg PO QDAY Qty: 6 RF: 0 dextroamphetamine-amphetamine 20 MG tablet 20 mg PO QODAY RF: 0 ondansetron 4 MG tablet 4 mg PO Q8H PRN PRN (Reason: Nausea) Qty: 10 RF: 0 L.acidoph, paracasei,B. lactis 1 EACH capsule 1 ea PO DAILY RF: 0 promethazine 25 MG tablet 25 mg PO Q6H PRN PRN (Reason: Nausea) Qty: 10 RF: 0 Stand Alone Forms: ED Work / School Excuse Primary Care Provider: Dion Davidson Referrals: Dion Davidson DO [Primary Care Provider] - 3-5 Days Disposition Disposition: Home, Self Care
[2021-10-03] MEDS: Ondansetron 4 MG/2 ML Vial IV (15:24)
[2021-10-03] MEDS: Morphine 4 MG/ML Syringe IV (15:25)
[2021-10-03 15:35] LABS: Bacteria 0 SEEN /hpf (None Seen); Mucous, Urine 0 SEEN /hpf (<or=2+)
[2021-10-03 15:37] LABS: Absolute Lymphocyte Count 2.37 X10^3/uL (0.83-4.51); Absolute Neutrophil Count 6.8 X10^3/uL (2.0-7.7); Eosinophil# 0.24 X10^3/uL; Eosinophils% 2.4 % (0-5); Glucose, Dipstick Normal (Normal); Hematocrit 43.6 % (37-47); Hemoglobin 14.9 g/dL (12.0-15.0); Ketone-Dipstick 5 mg/dl (Negative); Leukocyte Esterase-Dipstick 25 /ul (Negative); Lymphocyte # 2.37 X10^3/ul (0.83-4.51); Lymphocyte % 23.8 % (19-41); Mean Corp Hgb Conc 34.2 g/dL (32-36); Mean Corpuscular Volume 90.8 fL (81-99); Mean Platelet Vol. 8.6 fl (6.2-12.0); Monocyte# 0.38 X10^3/uL; Monocyte% 3.8 % (0-10); NRBC Flagged by Analyzer 0 % (0-5); Neutrophil % 68.5 % (47-70); Nitrite-Dipstick Negative (Negative); Occult Blood-Urine 250 /ul (Negative); Platelet Count 371 K/mm3 (150-450); Protein-Dipstick 100 mg/dl (Negative); RBC Distribution Width CV 12.7 % (11.6-14.6); Urine Bilirubin Dipstick Negative (Negative); Urine Urobilinogen Normal (Normal); White Blood Count 9.9 K/mm3 (4.4-11.0)
[2021-10-03 15:40] VITALS: BP 102/56; BP 116/80; BP 121/78; PULSE 66; PULSE 72; PULSE 79
[2021-10-03 15:42] LABS: Color, Urine Red (Yellow); Urine Clarity Cloudy (Clear)
[2021-10-03 15:48] LABS: Internal QC Validated? YES +Cl - CLEAR BKGD; Pregnancy, Serum, hCG Quali. NEGATIVE Negative
[2021-10-03 15:53] LABS: Red Blood Cells-Urine > 100 SEEN /hpf (0-5); Squamous Epithelial Cells - UA 0-5 SEEN /hpf (5-10); White Blood Cells 0-5 SEEN /hpf (0-5)
[2021-10-03 15:55] LABS: AST(SGOT) 11 U/L (15-37); Alanine Aminotransfer ALT/SGPT 22 U/L (13-56); Albumin, Serum 3.9 g/dL (3.2-5.0); Alkaline Phosphatase 81 U/L (45-117); Anion Gap 4 (5-15); BUN 8 mg/dL (7-18); BUN/Creat Ratio 11.4 RATIO (10-20); Calcium,Total 9.6 mg/dL (8.5-10.1); Chloride 109 mmol/L (98-107); EST Glomerular Filtration Rate 101 mL/min (>60); Est Glom Filt Rate - Afr Amer 122 mL/min (>60); Estimated Creatinine Clearance 89.56 ml/min; Glucose 87 mg/dL (74-106); Potassium 4.1 mmol/L (3.5-5.1); Protein, Total 7.9 g/dL (6.4-8.2); Sodium Level 138 mmol/L (136-145)
[2021-10-03 16:20] LABS: Partial Thromboplast Time 31.1 Seconds (24.1-36.2)
[2021-10-03 17:18] LABS: International Normalized Ratio 1.1; Prothrombin Time (Protime)PT. 13.3 SECONDS (11.7-14.9)
[2021-10-03 17:53] VITALS: PULSE 77; RESP 18
== END 2021-10-03 17:56 | disposition home or self-care (01) ==
PROVIDERS: Emergency Provider Emergency Medicine; PCP Student in an Organized Health Care Education/Training Program; Visit Provider Emergency Medicine
DX: N93.8 Other specified abnormal uterine and vaginal bleeding (principal); R31.9 Hematuria, unspecified; F17.210 Nicotine dependence, cigarettes, uncomplicated; R10.2 Pelvic and perineal pain
CPT/HCPCS: 80053; 81001; 84703; 85025; 85610; 85730; 96374; 96375; 99283; A4216; J2405